=== PATIENT | female | born 1975 | race Caucasian/White ===

== ENCOUNTER → 2017-07-16 14:53 | Outpatient (CLI) | payer BC, SELFPAY ==
--- NOTE | 2017-07-16 15:01 | US_ITS ---
US transvaginal Ordering Physician: Yolanda Couch Patient Age: 42 years: Female HISTORY: ITS.REASON: DUB, RLQ PAIN TECHNIQUE: Transvaginal pelvic ultrasound none COMPARISON : None relevant CT pelvis and 2007 of no benefit FINDINGS ====== UTERUS.: 7.8 cm length x 4.8 cm x 4.75 cm with Retroverted retroflexed uterus There are at least 3 fibroids. FIBROID A: 3.8 x 2.8 x 2.5 cm near the fundus towards anatomic posterior wall this retroverted retroflexed uterus FIBROID B: 2.7 cm x 2.8 cm x 2 cm at the mid portion of the anatomic anterior wall of is retroverted uterus FIBROID C: 1.2 CM X 1.8 CM. X 1.6 CM central position, adjacent to the top endometrial stripe. Prominent 1.2 cm nabothian cyst at cervical canal ----- Ovaries appear normal in size with a few scattered tiny follicles bilaterally. RIGHT OVARY:: 1.9 cm x 1.45 cm x 1.5 cm. LEFT OVARY: measures 2.5 x 1.7 x 2.1 cm. Trace fluid at cul-de-sac. ==== IMPRESSION: ========= Fibroid Uterus: Overall Normal size but Retroflexed retroverted uterus There are least 3 FIBROIDS.:. The largest measured 3.8 cm within the myometrium of the fundus The next is see myometrium n midportion of uterus 2.8 cm The third is a 1.8 cm cm fibroid adjacent to the right top of the endometrial stripe Ovaries appear normal in size and appearance. Trace fluid at cul-de-sac.
== END ==
PROVIDERS: Family Provider Nurse Practitioner; PCP Nurse Practitioner; Visit Provider Nurse Practitioner
DX: N93.9 Abnormal uterine and vaginal bleeding, unspecified (principal); R10.31 Right lower quadrant pain
CPT/HCPCS: 76830

== ENCOUNTER → 2017-08-03 15:01 | Outpatient (CLI) | payer BC, SELFPAY ==
--- NOTE | 2017-08-03 15:08 | XR_ITS ---
EXAM: XR lumbar spine min 4V HISTORY: ITS.REASON: LUMBAGO WITH SCIATICA ORDERING PHYSICIAN: Eugenio Bolton MD PATIENT AGE: 42 years FINDINGS: Normal alignment. No fracture or dislocation. No lytic or blastic change. No significant degenerative change. The disc spaces are preserved. IMPRESSION: Negative lumbar spine
== END ==
PROVIDERS: PCP Family Medicine; Visit Provider Family Medicine
DX: M54.42 Lumbago with sciatica, left side (principal); M54.41 Lumbago with sciatica, right side
CPT/HCPCS: 72110

== ENCOUNTER → 2017-08-16 13:51 | Outpatient (CLI) | payer BC, SELFPAY ==
--- NOTE | 2017-08-16 13:54 | MR_ITS ---
MR lumbar spine wo con, MR 3-d myelogram/MRCP HISTORY: X3WKS ago heard a pop and has had RT hip pain since. No trauma. ORDERING PHYSICIAN: Alberta Bartlett PATIENT AGE: 42 years COMPARISON: X-RAY 08-03-17 TECHNIQUE: Standard multiplanar multiecho sequences are performed without contrast. 3-D MIP and myelographic images are also rendered and reviewed FINDINGS: There is normal alignment. Spinal cord ends at the T12-L1 level. L1-L2, L2-L3, and L3-L4 have an unremarkable appearance. The disc space at L4-5 is unremarkable. There is mild facet and ligamentum flavum hypertrophic change at that level. L5-S1: There is a small broad-based central/left paracentral disc protrusion/herniation. This is abutting the left S1 nerve root. IMPRESSION: 1. Small broad-based central/left paracentral disc protrusion/herniation at L5-S1 abutting the left S1 nerve root. 2. Otherwise essentially negative MRI of the lumbar spine
== END ==
PROVIDERS: Family Provider Nurse Practitioner; PCP Family Medicine; Visit Provider Nurse Practitioner Family
DX: M54.42 Lumbago with sciatica, left side (principal); M54.41 Lumbago with sciatica, right side
CPT/HCPCS: 72148; 76376

== ENCOUNTER → 2018-02-08 13:57 | Outpatient (CLI) | payer BC, SELFPAY ==
--- NOTE | 2018-02-08 14:05 | XR_ITS ---
XR ankle LT min 3V HISTORY: ITS.REASON: LT ANKLE SWELLING ORDERING PHYSICIAN: Alberta Bartlett PATIENT AGE: 42 years Comparison: None FINDINGS: No fracture or dislocation. No lytic or blastic change. There is normal mineralization.. The joint spaces are well-preserved. No significant degenerative/arthritic changes. No erosive changes evident. IMPRESSION: Negative ankle, no acute finding
== END ==
PROVIDERS: PCP Nurse Practitioner Family; Visit Provider Nurse Practitioner Family
DX: M25.572 Pain in left ankle and joints of left foot (principal)
CPT/HCPCS: 73610

== ENCOUNTER 2018-02-08 14:23 | Outpatient (RCR) | payer BC, SELFPAY | END 2018-02-11 16:00 | disposition home or self-care (01) | LOC: PT 14:23 | PROVIDERS: Visit Provider Nurse Practitioner Family | DX: S93.492A Sprain of other ligament of left ankle, initial encounter (principal) | CPT/HCPCS: 97760 ==

== ENCOUNTER → 2018-08-05 14:35 | Outpatient (CLI) | payer BC, SELFPAY ==
--- NOTE | 2018-08-05 14:39 | XR_ITS ---
XR wrist RT min 3V HISTORY right wrist pain, carpal tunnel ITS.REASON: AP, lateral, oblique ORDERING PHYSICIAN: Theresa Ignacio MD PATIENT AGE: 43 years FINDINGS: No fracture or dislocation. No lytic or blastic change. There is normal mineralization.. The joint spaces are well-preserved. No significant degenerative/arthritic changes. No erosive changes evident.. IMPRESSION: Negative wrist
--- NOTE | 2018-08-05 14:43 | XR_ITS ---
XR hip LT 2-3V w/pelvis HISTORY: ITS.REASON: LT HIP PAIN ORDERING PHYSICIAN: Theresa Ignacio MD PATIENT AGE: 43 years COMPARISON: None FINDINGS: No fracture or dislocation is evident. No significant degenerative change. No lytic or blastic change. Unremarkable soft tissues IMPRESSION: Negative hip
== END ==
PROVIDERS: PCP Nurse Practitioner Family; Visit Provider Orthopaedic Surgery
DX: G56.01 Carpal tunnel syndrome, right upper limb (principal); M25.552 Pain in left hip
CPT/HCPCS: 73110; 73502

== ENCOUNTER → 2018-09-19 15:33 | Outpatient (CLI) | payer BC, SELFPAY ==
[2018-09-19 16:00] LABS: Basophils % 0.6 % (0.1-2.0); Eosinophils # 0.3 K/mm3 (0.0-0.4); Eosinophils % 4.1 % (0.1-12.0); Hematocrit 39.7 % (37.0-47.0); Hemoglobin 13.5 g/dL (12.2-16.2); Lymphocytes # 2.6 K/mm3 (0.7-4.5); Lymphocytes % 41.5 % (10-50); Mean Corpuscular HGB Conc 33.9 g/dL (31.8-35.4); Mean Corpuscular Hemoglobin 30.7 pg (27.0-31.2); Mean Corpuscular Volume 90.3 fl (81-99); Mean Platelet Volume 7.7 fl (7.4-10.4); Monocytes # 0.4 K/mm3 (0.1-1.0); Monocytes % 5.8 % (1.7-9.3); Neutrophils # 3.1 K/mm3 (1.8-7.8); Neutrophils % 47.9 % (37.0-80.0); Platelet Count 259 K/mm3 (142-424); Red Cell Distribution Width 13.1 % (11.5-17.5); White Blood Count 6.4 K/mm3 (4.8-10.8)
[2018-09-19 19:32] LABS: Anion Gap 14.5 mEq/L (5-15); Blood Urea Nitrogen 15 mg/dL (7-18); Calcium 9.1 mg/dL (8.5-10.1); Carbon Dioxide 27 mmol/L (21.0-32.0); Chloride 103 mmol/L (98-107); Creatinine,Serum 0.73 mg/dL (0.55-1.02); Estimated Glomerular Filt Rate 87 ml/min (>60); GFR (African American) 105 ML/MIN (>60); Glucose 107 mg/dL (74-106); Potassium 4.5 mmoL/L (3.5-5.1); Sodium 140 mmol/L (136-145)
== END ==
PROVIDERS: Visit Provider Orthopaedic Surgery
DX: Z00.00 Encounter for general adult medical examination without abnormal findings (principal); G56.01 Carpal tunnel syndrome, right upper limb
CPT/HCPCS: 36415; 80048; 85025

== ENCOUNTER 2018-09-27 11:06 | Day surgery (SDC) | payer BC, SELFPAY ==
[2018-09-26 10:42] VITALS: BMI 34.6
[2018-09-27 11:27] VITALS: BP 141/77; PULSE 66; RESP 18; TEMP 36.1; O2SAT 100
--- NOTE | 2018-09-27 11:57 | HMH.ANESCL ---
[facility] Anesthesia Checklist - Patient Identification Patient Identification: Arm Band, Verbal (Name & ) - Structural Data Admitted From: Home Planned Operative Procedure/s: Right CTR Consent for Planned Operative Procedure(s) Verified: Yes Verified Documents: Surgical Consent, History and Physical - NPO Status Verified Time NPO: 21:00 - Additional verifications Patient : No Anesthesia Reactions: No - Airway Assessment C-Spine Mobility Assessed: Yes TMJ Mobility Assessed: Yes Dentition: Good Dentition - Neurological Assessment Level of Consciousness: Awake, Alert, Appropriate, Follows Commands Hx Seizures: No Numbness or tingling in extremities: No - Anesthesia Plan Anesthesia Risk discussed: Yes Anesthesia Plan: Verified ASA Class: II Anesthesia Type: None (Sandra block and MAC) [facility] History I have reviewed the patient's past medical history: Yes Medical History: Reports:: Depression, Gastroesophageal Reflux Disease(GERD) Denies:: Cancer, Diabetes Mellitus Type 1, Diabetes Mellitus Type 2, Internal Pacemaker, MRSA, Seizures *Have you ever received a pneumonia vaccine?: No *Have you received a flu vaccine this season?: Yes Other Medical History: Denies: Blood Transfusion Reaction Laterality Cases: Bilateral: Other (wisdom teeth) Other Surgeries: Yes: Cholecystectomy, Hysterectomy-Total, Other (ovarian cystectomy). No: Pacemaker Amputation: No Fractures: No - *Social History Educational Level: Attended College Smoking Status: Never smoker Alcohol Intake: never Substance Use Type: denies use *Occupational Status:: employed Housing: house Household Members: family *Travel in the last 8 weeks: None - Psychiatric History Expresses thoughts of harming self/others: None Suicide Plan Description: No Plan Pschychiatric History:: Reports:: Depression Family Hx:: Hypertension, Cancer, Diabetes
[2018-09-27 13:45] VITALS: BP 151/78; PULSE 62; RESP 18; TEMP 36.1; O2SAT 99
[2018-09-27 14:15] VITALS: BP 115/68; PULSE 65; RESP 18; O2SAT 100
--- NOTE | 2018-09-27 15:15 | HMH.OPNOTE ---
Date of procedure: 09/27/18 Pre-op Diagnosis:: R carpal tunnel syndrome Post-op Diagnosis:: R carpal tunnel syndrome Procedure performed:: R carpal tunnel release Surgeon:: Theresa Ignacio MD Pharmacy Tech(s):: Wen Dunne RESPIRATORY CARE TECHNICIAN:: Eugenio Rivas Anesthesia: MAC, local, other (Sandra block) Estimated blood loss (mL): 5 Clinical Note:: 43-year-old female with a chief complaint of right hand pain, numbness and tingling in the first 3 digits of the hand. She has been seen previously by Dr. Okeefe for similar symptoms and received a steroid injection followed by physical therapy, which did help for around 8 months. Bracing and NSAIDs were added but they did not make a tremendous difference. Her symptoms have been steadily worsening for the last few months and she has been dropping objects; the pain wakes her up at night. EMG-NCS RUE 09/08/2018 = [id number] median nerve compression at the wrist. The patient would like to proceed with surgical treatment, and I believe this is reasonable given that her symptoms have been present for 4 years and she has failed to improve with PT, bracing and a steroid injection. I discussed the risks of surgery, including bleeding, infection, impaired wound healing, failure of symptom resolution, recurrence of CTS, and need for further surgery in the future. The patient vocalized understanding and provided informed consent. Operative findings:: compression of median nerve at R wrist Operative note:: The patient was identified in preoperative holding and the R wrist signed by myself. She was then seen by anesthesia and the decision was made to perform a combination of MAC and Cheswick block. I reviewed the consent with the patient, answering all questions. She was then taken to the OR and placed supine on the operative table. Ancef 1g was infused intravenously and then the anesthesia provider administered a Cheswick block to the R upper extremity using lidocaine and a single tourniquet with 2 bladders. Once the Cheswick block was completed, the R arm was prepped and draped from the elbow distally in the usual sterile fashion using chlorhexidine prep. Timeout was performed, identifying the correct patient, correct procedure, and correct site. The procedure was begun by placing the patient's R hand/forearm in a supinated position. The planned surgical incision was drawn using anatomic landmarks specifically at the intersection of Rangel's cardinal line and the radial border of the ring finger, extending proximally to the wrist flexion crease. Because the Sandra block was up, further exsanguination was not needed. The procedure was begun by making an incision over the volar aspect of the wrist in a longitudinal fashion following our previously delineated line. After the skin was incised, a blunt-tipped tenotomy scissors was used to bluntly spread the subcutaneous tissue. Tissue was spread until the transverse carpal ligament was identified. No neurovascular structures were encountered thus far. The transverse carpal ligament was identified and its proximal margin palpated with a freer elevator. I was able to slip the tip of the freer under the proximal edge of the transverse carpal ligament and into the carpal tunnel. Using a fresh 15 blade, I lightly teased the fibers of the ligament and released it from proximally to distally using the freer to protect the underlying carpal tunnel contents. I continued to cut down onto the freer moving distally, until the entire transverse carpal ligament was released. Then, using the blunt tenotomy scissors, I push-cut around 5-10 mm of the distal forearm fascia and palpated the distal end of the transverse carpal ligament, confirming that the entire canal had been released. The median nerve was readily identified underlying the ligament and it was hyperemic; the transverse carpal ligament and the carpal tunnel contents were very tight and there was a high degree of compression on the nerve. I was able
--- NOTE | 2018-09-27 15:28 | P.OP_ITS ---
Date of procedure: 09/27/18 Pre-op Diagnosis:: R carpal tunnel syndrome Post-op Diagnosis:: R carpal tunnel syndrome Procedure performed:: R carpal tunnel release Surgeon:: Theresa Ignacio MD High School Music Director(s):: Wen Dunne COUNTER STITCHER:: Eugenio Rivas Anesthesia: MAC, local, other (Sandra block) Estimated blood loss (mL): 5 Clinical Note:: 43-year-old female with a chief complaint of right hand pain, numbness and tingling in the first 3 digits of the hand. She has been seen previously by Dr. Okeefe for similar symptoms and received a steroid injection followed by physical therapy, which did help for around 8 months. Bracing and NSAIDs were added but they did not make a tremendous difference. Her symptoms have been steadily worsening for the last few months and she has been dropping objects; the pain wakes her up at night. EMG-NCS RUE 09/08/2018 = [id number] median nerve compression at the wrist. The patient would like to proceed with surgical treatment, and I believe this is reasonable given that her symptoms have been present for 4 years and she has failed to improve with PT, bracing and a steroid injection. I discussed the risks of surgery, including bleeding, infection, impaired wound healing, failure of symptom resolution, recurrence of CTS, and need for further surgery in the future. The patient vocalized understanding and provided informed consent. Operative findings:: compression of median nerve at R wrist Operative note:: The patient was identified in preoperative holding and the R wrist signed by myself. She was then seen by anesthesia and the decision was made to perform a combination of MAC and [place] block. I reviewed the consent with the patient, answering all questions. She was then taken to the OR and placed supine on the operative table. Ancef 1g was infused intravenously and then the anesthesia provider administered a [place] block to the R upper extremity using lidocaine and a single tourniquet with 2 bladders. Once the [place] block was completed, the R arm was prepped and draped from the elbow distally in the usual sterile fashion using chlorhexidine prep. Timeout was performed, identifying the correct patient, correct procedure, and correct site. The procedure was begun by placing the patient's R hand/forearm in a supinated position. The planned surgical incision was drawn using anatomic landmarks specifically at the intersection of Rangel's cardinal line and the radial border of the ring finger, extending proximally to the wrist flexion crease. Because the Sandra block was up, further exsanguination was not needed. The procedure was begun by making an incision over the volar aspect of the wrist in a longitudinal fashion following our previously delineated line. After the skin was incised, a blunt-tipped tenotomy scissors was used to bluntly spread the subcutaneous tissue. Tissue was spread until the transverse carpal ligament was identified. No neurovascular structures were encountered thus far. The transverse carpal ligament was identified and its proximal margin palpated with a freer elevator. I was able to slip the tip of the freer under the proximal edge of the transverse carpal ligament and into the carpal tunnel. Using a fresh 15 blade, I lightly teased the fibers of the ligament and released it from proximally to distally using the freer to protect the underlying carpal tunnel contents. I continued to cut down onto the freer moving distally, until the entire transverse carpal ligament was released. Then, using the blunt tenotomy scissors, I push-cut around 5-10 mm of the distal forearm fascia and palpated the distal end of the transverse carpal ligament, confirming that the entire canal had been released. The median
== END 2018-09-27 14:15 | disposition home or self-care (01) ==
LOC: OR 11:10
PROVIDERS: PCP Nurse Practitioner Family; Visit Provider Orthopaedic Surgery
PROC: (CPT 64721; principal; 2018-09-27 12:30)
DX: G56.01 Carpal tunnel syndrome, right upper limb (principal)
CPT/HCPCS: 64721; 96374

== ENCOUNTER → 2019-08-07 09:32 | Outpatient (CLI) | payer BC, SELFPAY ==
[2019-08-07 10:53] LABS: Basophils # 0.1 K/mm3 (0-0.2); Eosinophils # 0.1 K/mm3 (0.0-0.4); Eosinophils % 1.6 % (0.1-12.0); Hematocrit 42.9 % (37.0-47.0); Hemoglobin 14.3 g/dL (12.2-16.2); Lymphocytes # 2.6 K/mm3 (0.7-4.5); Lymphocytes % 38.4 % (10-50); Mean Corpuscular HGB Conc 33.4 g/dL (31.8-35.4); Mean Corpuscular Hemoglobin 30.7 pg (27.0-31.2); Mean Corpuscular Volume 91.7 fl (81-99); Monocytes # 0.4 K/mm3 (0.1-1.0); Monocytes % 5.8 % (1.7-9.3); Neutrophils # 3.6 K/mm3 (1.8-7.8); Neutrophils % 53.2 % (37.0-80.0); Platelet Count 309 K/mm3 (142-424); Red Blood Count 4.68 M/mm3 (4.20-5.40); White Blood Count 6.7 K/mm3 (4.8-10.8)
[2019-08-07 11:55] LABS: Alanine Aminotransferase 18 U/L (12-78); Albumin Level 4.2 g/dl (3.5-5.0); Albumin/Globulin Ratio 1.4 (1.1-1.8); Alkaline Phosphatase 61 U/L (38-126); Anion Gap 9.8 mEq/L (5-15); Aspartate Amino Transferase 21 U/L (14-36); Bilirubin,Total 0.3 mg/dl (0.2-1.3); Blood Urea Nitrogen 13 mg/dl (7-17); Calcium 9.7 mg/dl (8.4-10.2); Carbon Dioxide 29 mmol/L (22.0-30.0); Chloride 101 mmol/L (98-107); Estimated Glomerular Filt Rate 90 ml/min (>60); GFR (African American) 109 ML/MIN (>60); Glucose 96 mg/dl (74-100); Potassium 3.8 mmoL/L (3.5-5.1); Sodium 136 mmol/L (136-145); Total Protein,Serum 7.2 g/dl (6.3-8.2)
[2019-08-07 12:28] LABS: Thyroid Stimulating Hormone 2.33 uIU/mL (0.465-4.68)
[2019-08-07 12:32] LABS: Ferritin 21.4 ng/ml (6.24-137)
[2019-08-08 12:44] LABS: Vitamin B12 547 pg/mL (232-1245); Vitamin D 25 Hydroxy 29.1 ng/mL (30.0-100.0)
== END ==
PROVIDERS: Visit Provider Nurse Practitioner Family
DX: R53.83 Other fatigue (principal); E55.9 Vitamin D deficiency, unspecified
CPT/HCPCS: 36415; 80053; 82607; 82652; 82728; 84443; 85025

== ENCOUNTER → 2019-10-26 16:05 | Outpatient (CLI) | payer BC, SELFPAY ==
[2019-10-26 16:11] LABS: Adenovirus F 40/41, stool Not Detected (NotDetected); Astrovirus Not Detected (NotDetected); Clostridium Difficile A/B, PCR Not Detected (NotDetected); Cryptosporidium Not Detected (NotDetected); Cyclospora Cayetanesis Not Detected (NotDetected); Entamoeba histolytica Not Detected (NotDetected); Enteroaggregative E coli Not Detected (NotDetected); Enteropathogenic E coli Not Detected (NotDetected); Enterotoxigenic E coli Not Detected (NotDetected); Giardia lamblia Not Detected (NotDetected); Norovirus Not Detected (NotDetected); Plesimonas Shigalloides, PCR Not Detected (NotDetected); Rotavirus A Not Detected (NotDetected); Salmonella, PCR Not Detected (NotDetected); Sapovirus Not Detected (NotDetected); Shiga-like toxin E coli Not Detected (NotDetected); Shigella Enterovasive E coli Not Detected (NotDetected); Vibrio Cholerae Not Detected (NotDetected); Vibrio, PCR Not Detected (NotDetected); Yersinia Entercolitica, PCR Not Detected (NotDetected)
[2019-10-26 18:12] LABS: Campylobacter Detected (NotDetected)
[2019-10-28 12:57] LABS: Covid-19 Nasal PCR Sendout Lex Not Detected
== END ==
PROVIDERS: Visit Provider Nurse Practitioner Family
DX: Z03.818 Encounter for observation for suspected exposure to other biological agents ruled out (principal); R19.7 Diarrhea, unspecified; A04.5 Campylobacter enteritis
CPT/HCPCS: 87507; U0004

== ENCOUNTER → 2019-11-14 11:13 | Outpatient (POV) | payer BC, SELFPAY | PROVIDERS: PCP Family Medicine; Visit Provider Dermatology | DX: Z00.00 Encounter for general adult medical examination without abnormal findings (principal) ==

== ENCOUNTER → 2019-11-28 13:19 | Outpatient (POV) | payer BC, SELFPAY | PROVIDERS: Visit Provider Dermatology | DX: Z00.00 Encounter for general adult medical examination without abnormal findings (principal) ==

== ENCOUNTER → 2019-12-12 10:18 | Outpatient (POV) | payer BC, SELFPAY | PROVIDERS: Visit Provider Dermatology | DX: Z00.00 Encounter for general adult medical examination without abnormal findings (principal) ==

== ENCOUNTER → 2019-12-19 15:26 | Outpatient (POV) | payer BC, SELFPAY | PROVIDERS: Visit Provider Dermatology | DX: L08.9 Local infection of the skin and subcutaneous tissue, unspecified (principal) | CPT/HCPCS: 87070; 87077; 87186; 87205 ==

== ENCOUNTER → 2020-02-06 14:58 | Outpatient (CLI) | payer BC, SELFPAY ==
--- NOTE | 2020-02-06 15:02 | MR_ITS ---
PROCEDURE: MR HEAD/BRAIN WO CON CLINICAL INDICATION: DIZZINESS, HEADACHE, FACIAL NUMBNESS HEADACHE X6WKS.DIZZINESS, BLURRED VISION CONDTANT X2WKS. NO INJURY. INTERMITTENT NUMBNESS AND TINGLING AROUND LIPS AND ROOF OF MOUTH. NO PRIOR. COMPARISON: No exams were available for comparison TECHNIQUE: Routine multiplanar multi echo sequences are performed without gadolinium enhancement. FINDINGS: No midline shift, mass effect, intracranial hemorrhage, or hydrocephalus. No evidence of acute infarction. The cerebellopontine angles, cerebellum and brainstem have an unremarkable appearance. The pituitary, optic chiasm, corpus callosum, and craniocervical junction have an unremarkable appearance. No mastoid effusion or sinus air-fluid level. IMPRESSION: Negative MRI of the brain without contrast Dictated by: Farhan Palumbo MD 02/07/2020 11:41 Farhan Palumbo MD in [place] 02/07/2020 11:41
== END ==
PROVIDERS: PCP Family Medicine; Visit Provider Nurse Practitioner Family
DX: R42 Dizziness and giddiness (principal); R51.9 Headache, unspecified; R20.0 Anesthesia of skin; R41.3 Other amnesia
CPT/HCPCS: 70551

== ENCOUNTER → 2020-02-13 13:57 | Outpatient (POV) | payer BC, SELFPAY | PROVIDERS: Visit Provider Dermatology | DX: Z00.00 Encounter for general adult medical examination without abnormal findings (principal) ==

== ENCOUNTER → 2020-02-24 11:58 | Outpatient (CLI) | payer BC, SELFPAY ==
[2020-02-24 12:31] LABS: Basophils % 0.5 % (0.1-2.0); Eosinophils # 0.1 K/mm3 (0.0-0.4); Eosinophils % 1.7 % (0.1-12.0); Hematocrit 46.1 % (37.0-47.0); Hemoglobin 15.8 g/dL (12.2-16.2); Lymphocytes % 39.7 % (10-50); Mean Corpuscular HGB Conc 34.3 g/dL (31.8-35.4); Mean Corpuscular Hemoglobin 31.4 pg (27.0-31.2); Mean Corpuscular Volume 91.6 fl (81-99); Mean Platelet Volume 7.9 fl (7.4-10.4); Monocytes # 0.5 K/mm3 (0.1-1.0); Monocytes % 6.1 % (1.7-9.3); Neutrophils # 3.9 K/mm3 (1.8-7.8); Platelet Count 314 K/mm3 (142-424); Red Blood Count 5.03 M/mm3 (4.20-5.40); Red Cell Distribution Width 13.5 % (11.5-17.5); White Blood Count 7.5 K/mm3 (4.8-10.8)
[2020-02-24 13:32] LABS: Chloride 96 mmol/L (98-107); Potassium 3.5 mmoL/L (3.5-5.1); Sodium 138 mmol/L (136-145)
[2020-02-24 13:35] LABS: Anion Gap 13.5 mEq/L (5-15); Blood Urea Nitrogen 18 mg/dl (7-17); Carbon Dioxide 32 mmol/L (22.0-30.0); Estimated Glomerular Filt Rate 78 ml/min (>60); GFR (African American) 94 ML/MIN (>60); Glucose 78 mg/dl (74-100)
[2020-02-24 15:59] LABS: Coronavirus 19 IgG Antibody Negative (Negative); Coronavirus 19 IgM Antibody Negative (Negative)
== END ==
PROVIDERS: Visit Provider Internal Medicine
DX: Z01.810 Encounter for preprocedural cardiovascular examination (principal); Z13.6 Encounter for screening for cardiovascular disorders
CPT/HCPCS: 36415; 80048; 85025; 86328

== ENCOUNTER 2020-02-26 08:36 | Day surgery (SDC) | payer BC, SELFPAY ==
[2020-02-26] VITALS (13 sets, daily range): BP systolic 102–136; BP diastolic 59–84; PULSE 62–82; RESP 12–20; TEMP 36.5; O2SAT 90–100; BMI 36.7
--- NOTE | 2020-02-26 | IR_ITS ---
APPROVED REPORT Patient Location: Outpatient PROCEDURES Left heart catheterization Left ventriculogram Selective coronary angiogram INDICATION Recalcitrant angina pectoris combined with risk factors with borderline significant/abnormal stress test based on exercise-induced chest pain per report Informed consent was obtained prior to the procedure. COMPLICATIONS None Estimated Blood Loss: Less thna 10 ml TECHNIQUE One percent lidocaine used to anesthetize the right anterior aspect of the wrist. The right radial artery was accessed via the Seldinger technique. A 6 Occitan sheath was placed in the right radial artery. 2.5 mg of verapamil, 800 mcg of nitroglycerin, 1mg Lidocaine and 5000 U Heparin were given through the arterial sheath. The trap catheter was also used to perform left heart catheterization, left ventriculogram and selective coronary angiogram. At the end of the procedure the sheath was removed good hemostasis was achieved using Traclet band, patient was transferred to the postop holding area in stable condition. ANGIOGRAPHIC RESULTS The left main artery Normal The left anterior descending artery Normal The circumflex artery Normal The right coronary artery Dominant normal The MOENT ventriculogram reveals Normal 65% The left ventricular end-diastolic pressure 15 mmHg IMPRESSION Normal coronary arteries Normal ejection fraction Borderline elevated LVEDP PLAN 1. Medical management 2. Valuation of noncardiac chest pain Electronically signed by : Henri Lewis, 02/26/2020 10:21:40
== END 2020-02-26 13:24 ==
LOC: CATHLAB 08:43
PROVIDERS: PCP Family Medicine; Visit Provider Internal Medicine
DX: I25.118 Atherosclerotic heart disease of native coronary artery with other forms of angina pectoris (principal); R07.9 Chest pain, unspecified; R94.39 Abnormal result of other cardiovascular function study; I10 Essential (primary) hypertension; Z82.49 Family history of ischemic heart disease and other diseases of the circulatory system; R42 Dizziness and giddiness
CPT/HCPCS: 93458; 99152; 99153; C1725; C1769; J1644; Q9967

== ENCOUNTER → 2020-02-27 14:20 | Outpatient (CLI) | payer BC, SELFPAY ==
--- NOTE | 2020-02-27 14:24 | XR_ITS ---
PROCEDURE: XR CHEST 2V CLINICAL HISTORY: CHEST TIGHTNESS AND PRESSURE COMPARISON: No exams were available for comparison FINDINGS: The cardiomediastinal silhouette and pulmonary vascularity are within normal limits. The lungs are clear without infiltrates, suspicious nodules, or pleural effusions. No acute bony abnormalities. IMPRESSION: No acute findings. Dictated by: Farhan Palumbo MD 02/27/2020 15:11 Farhan Palumbo MD in [place] 02/27/2020 15:11
== END ==
PROVIDERS: PCP Family Medicine; Visit Provider Family Medicine
DX: R07.89 Other chest pain (principal)
CPT/HCPCS: 71046

== ENCOUNTER → 2020-03-06 10:05 | Outpatient (CLI) | payer BC, SELFPAY ==
[2020-03-06 11:09] LABS: Chloride 96 mmol/L (98-107); Potassium 3.6 mmoL/L (3.5-5.1); Sodium 137 mmol/L (136-145)
[2020-03-06 11:12] LABS: Anion Gap 9.6 mEq/L (5-15); Blood Urea Nitrogen 15 mg/dl (7-17); Carbon Dioxide 35 mmol/L (22.0-30.0); Estimated Glomerular Filt Rate 78 ml/min (>60); GFR (African American) 94 ML/MIN (>60)
[2020-03-06 11:13] LABS: Calcium 9.8 mg/dl (8.4-10.2); Glucose 97 mg/dl (74-100)
== END ==
PROVIDERS: Visit Provider Urology
DX: I10 Essential (primary) hypertension (principal); R42 Dizziness and giddiness
CPT/HCPCS: 36415; 80048

== ENCOUNTER 2020-08-23 13:19 | Emergency (ER) | payer BC, SELFPAY ==
[2020-08-23 13:25] VITALS: BP 125/62; PULSE 69; RESP 19; TEMP 36.6; O2SAT 98; BMI 35.6
--- NOTE | 2020-08-23 13:51 | HMH.EDUTC ---
[facility] [place] Impression: Poison cuauhtemoc dermatitis Disposition: Home, Self-Care Condition on Discharge: Good Instructions: DI for Poison Cuauhtemoc Allergy Prescriptions: EPINEPHrine [Epipen 2-Olegario] 0.3 mg IJ ONCE #2 auto.injct Transmission Status: Pending to [facility] Triamcinolone Acetonide 15 gm TP BID 7 Days #1 tube Transmission Status: Pending to [facility] Referrals: Alberta Bartlett APRN [Primary Care Provider] - Time of Disposition: 13:57 Medical Decision Making - Kale Inquiry Pt receiving controlled substance: No Vital Signs: 08/23/20 13:25 Temperature 97.9 F Temperature Source Temporal Artery Scan Pulse Rate [Left Brachial] 69 Respiratory Rate 19 Blood Pressure [Left Arm] 125/62 Blood Pressure Mean [Left Arm] 83 Blood Pressure Source [Left Arm] Automatic Cuff Blood Pressure Position [Left Arm] Sitting 02 Sat by Pulse Oximetry 98 Oxygen Delivery Method Room Air [facility] [place] - General Chief complaint: Urgent [facility] Center Stated complaint: possible poison cuauhtemoc Time Seen by Provider: 08/23/20 13:51 Mode of Arrival: Ambulatory Source of Information: Patient Limitations: No Limitations Description of Symptoms (Recalled from Triage Doc. by RN): PATIENT C/O POISON CUAUHTEMOC TO BILATERAL ARMS X 2 DAYS HEENT Symptoms (Recalled from RN notes): No Resp Symptoms (Recalled from RN notes): No Skin Symptoms (Recalled from RN notes): Yes MS Symptoms (Recalled from RN notes): No Functional Status (Recalled from RN notes): WNL - History of Present Illness Provider Complaint: 45 yr old female presents for posion cuauhtemoc to [facility]. - Related Data Home Medications Medication Instructions Recorded Confirmed citalopram 20 mg tablet 20 mg PO DAILY 11/17/17 03/06/20 cetirizine 10 mg capsule 10 mg PO DAILY 08/08/18 03/06/20 Omeprazole [Omeprazole 20mg 20 mg PO DAILY 09/26/18 03/06/20 Capsule] vilazodone 10 mg tablet 10 mg PO DAILY tab 02/19/20 03/06/20 Previous Rx's Medication Instructions Recorded hydrochlorothiazide 25 mg tablet 25 mg PO DAILY #90 tab 03/06/20 losartan 50 mg tablet 50 mg PO DAILY #90 tab 03/06/20 metoprolol succinate 25 mg 25 mg PO DAILY #90 tab 03/06/20 tablet,extended release 24 hr EPINEPHrine [Epipen 2-Olegario] 0.3 mg IJ ONCE #2 auto.injct 08/23/20 Triamcinolone Acetonide 15 gm TP BID 7 Days #1 tube 08/23/20 Allergies Allergy/AdvReac Type Severity Reaction Status Date / Time Sulfa (Sulfonamide Allergy Mild UNKNOWN Verified 03/06/20 09:41 Antibiotics) - Worker's Comp Is this a Worker's Comp case?: No H History - Hepatitis A Screen Drug use history?: No High risk sexual behaviors?: No History of sexually transmitted infection?: No Currently employed?: No Childcare worker?: No Do you have indoor plumbing?: Yes Do you have electricity?: Yes Attestation statement:: This patient has been screened for Hepatitis A risk factors. I have reviewed the patient's past medical history: Yes Medical History: Reports:: Depression, Gastroesophageal Reflux Disease(GERD), Hyperlipidemia, Hypertension Denies:: Cancer, Diabetes Mellitus Type 1, Diabetes Mellitus Type 2, Internal Pacemaker, MRSA, Seizures Other Medical History: Denies: Blood Transfusion Reaction Laterality Cases: Right: Carpal Tunnel Release, Bilateral: Other Other Surgeries: Yes: No Previous Surgery, Cardiac Catheterization, Cholecystectomy, Hysterectomy-Total, Other (ovarian cystectomy). No: Pacemaker Amputation: No Fractures: No - Social History Smoking Status: Never smoker Alcohol Intake: never Alcohol Intake Frequency:: holidays/special occasions only Substance Use Type: denies use Occupational Status: other Housing: house Household Members: family - Psychiatric History Pschychiatric History:: Reports:: Depression Family Hx:: Hypertension, Cancer, Diabetes ROS Obtained: Yes Systems reviewed as appropriate & no additional complaints - Constitutional Constitutional: Re
[2020-08-23 14:08] VITALS: BP 125/62; PULSE 69; RESP 19; TEMP 36.6; O2SAT 98
== END 2020-08-23 14:12 | disposition home or self-care (01) ==
PROVIDERS: Emergency Provider Nurse Practitioner Family; PCP Nurse Practitioner Family
DX: L23.7 Allergic contact dermatitis due to plants, except food (principal); K21.9 Gastro-esophageal reflux disease without esophagitis; E78.5 Hyperlipidemia, unspecified; I10 Essential (primary) hypertension; Z79.899 Other long term (current) drug therapy; Z88.2 Allergy status to sulfonamides
CPT/HCPCS: 96372; 99202; G0463

== ENCOUNTER → 2020-11-26 13:48 | Outpatient (POV) | payer BC, SELFPAY | PROVIDERS: Visit Provider Dermatology | DX: Z00.00 Encounter for general adult medical examination without abnormal findings (principal) ==

== ENCOUNTER → 2020-12-24 13:51 | Outpatient (POV) | payer BC, SELFPAY | PROVIDERS: Visit Provider Dermatology | DX: Z00.00 Encounter for general adult medical examination without abnormal findings (principal) ==

== ENCOUNTER → 2021-01-02 14:27 | Outpatient (CLI) | payer BC, SELFPAY ==
--- NOTE | 2021-01-02 14:32 | XR_ITS ---
PROCEDURE: XR ANKLE RT MIN 3V CLINICAL INDICATION: RT ANKLE PAIN The COMPARISON: CR FTR3 FOOT-RT-3 VIEWS from 12/02/2012 CR ANKCMLT XR ankle LT min 3V from 02/08/2018 FINDINGS: No fracture or dislocation. No lytic or blastic change. There is normal mineralization. There are hypertrophic changes along the tip of the medial malleolus. This may be due to an old fracture or ununited ossification center. No soft tissue swelling. No acute fracture apparent. Small bony spurs present at the plantar surface of the calcaneus IMPRESSION: No acute findings. Dictated by: Farhan Palumbo MD 01/02/2021 15:32 Farhan Palumbo MD in [place] 01/02/2021 15:32
== END ==
PROVIDERS: PCP Nurse Practitioner Family; Visit Provider Nurse Practitioner Family
DX: M25.571 Pain in right ankle and joints of right foot (principal)
CPT/HCPCS: 73610

== ENCOUNTER → 2021-01-27 08:46 | Outpatient (CLI) | payer BC, SELFPAY ==
--- NOTE | 2021-01-27 08:50 | US_ITS ---
PROCEDURE: US ABDOMEN COMPLETE CLINICAL INDICATION: ABD WALL LUMP COMPARISON: No exams were available for comparison FINDINGS: PANCREAS: Unremarkable. No obvious mass or abnormal fluid collection. No ductal dilatation LIVER: No focal liver lesions demonstrated. Homogeneous echogenicity. No intrahepatic biliary ductal dilatation evident. There is appropriate direction of blood flow within a non dilated portal vein RIGHT KIDNEY: Unremarkable. Normal size and echogenicity. No hydronephrosis LEFT KIDNEY: Unremarkable. Normal size and echogenicity. No hydronephrosis GALLBLADDER: Prior cholecystectomy. Common bile duct is normal at 4 mm. AORTA: No evidence of aneurysmal dilatation. SPLEEN: Borderline splenomegaly at 13 cm. ASCITES: Patient reports a palpable lump in the anterior aspect of the abdomen. Ultrasound performed of this region only demonstrating subcutaneous fat. No cystic or solid mass evident. IMPRESSION: Prior cholecystectomy. Borderline splenomegaly. No sonographic abnormality demonstrated in the palpable area of concern Dictated by: Farhan Palumbo MD 01/27/2021 12:10 Farhan Palumbo MD in [place] 01/27/2021 12:10
== END ==
PROVIDERS: PCP Nurse Practitioner Family; Visit Provider Nurse Practitioner Family
DX: R22.2 Localized swelling, mass and lump, trunk (principal)
CPT/HCPCS: 76700

== ENCOUNTER → 2021-02-17 08:39 | Outpatient (CLI) | payer BC, SELFPAY ==
--- NOTE | 2021-02-17 08:40 | MR_ITS ---
PROCEDURE INFORMATION: Exam: MR Right Lower Extremity Joint Without and With Contrast; Ankle Exam date and time: 02/17/2021 8:40 AM Age: 45 years old Clinical indication: Pain and injury or trauma; Fall; Sprain or strain; Right; Patient HX: PT C/O RT heel and ankle pain after rolling RT ankle 3 weeks ago. ; Additional info: Right ankle pain TECHNIQUE: Imaging protocol: MR of the Right lower extremity without and with contrast. Exam focused on the ankle. Contrast material: PROHANCE; Contrast volume: 20 ml; Contrast route: IV; COMPARISON: CR XR ANKLE RT MIN 3V 01/02/2021 2:34 PM FINDINGS: Bones and cartilage: Chronic appearing ovoid ossicle of 8 x 5 mm at the anterior tip of the medial malleolus, suggesting old avulsion injury or chronic deltoid calcification; sagittal series 10, image 36. No marrow edema within or surrounding this ossicle to suggest an acute avulsion injury. Articular chondromalacia at the anterior tibiotalar joint, with cartilage thinning, fraying or erosion and edema, sagittal series 10, images 28-32, Degenerative osteoarthrosis of the talonavicular joint with ovoid anterior navicular osteophyte sagittal series 10, image 26. Articular cartilage edema at the anterior talonavicular joint. Tiny type 1 accessory navicular ossicle of 3 mm suggested on series 5. No acute fracture or dislocation. Joint spaces: A small effusion of the posterior subtalar joint pooling posteriorly series 10, image 24, and trace ankle joint effusion. LIGAMENTS: Distal tibiofibular syndesmosis: Unremarkable. No tear. Anterior talofibular ligament: Torn anterior talofibular ligament, ill-defined and replaced by intermediate intensity on nonenhanced T1 series 5, and soft tissue edema signal on coronal series 9, image 41. Posterior talofibular ligament: Mild surrounding soft tissue edema. No tear. Calcaneofibular ligament: Slight interstitial edema. No surface tear. Deltoid ligament complex: Abnormal deltoid ligament; on T1 series, there is loss of the normal fatty striated deltoid signal, replaced by intermediate intensity and with some mild interstitial edema seen on STIR series 9, likely [id number] sprain. No definite surface tear. TENDONS: Flexor tendons of foot: No tear as visualized. Trace fluid in the flexor hallucis longus tendon sheath at the ankle, which may be due to the ankle effusion. Tibialis posterior tendon: Small amount fluid in the tendon sheath at the posterior ankle but also in the midfoot, suggesting slight tenosynovitis. No tendon tear. Peroneal tendons: Unremarkable as visualized. Extensor tendons of foot: Unremarkable as visualized. Tibialis anterior tendon: Unremarkable as visualized. Achilles tendon: Unremarkable as visualized. Tarsal canal (Sinus tarsi): Unremarkable. Normal signal of the fat. Tarsal tunnel: Unremarkable. Muscles: Unremarkable. Soft tissues: There are some technical artifacts from clothing constricting the soft tissues surrounding the ankle, e.g. see sagittal series 10, image 32. Some mild edema fluid at the anterolateral ankle. Plantar fascia: Mildly thickened posterior plantar fascia. Minimal soft tissue edema abutting the plantar spur. No tear. IMPRESSION: 1. No acute fracture or dislocation. 2. Lateral ligament sprain injury; torn anterior talofibular ligament, interstitial edema in the calcaneal fibular ligament, deep soft tissue edema at the lateral ankle. 3. Suspect [id number]-[id number] sprain of the deltoid ligament; likely old medial malleolar avulsion injury or chronic deltoid ligament calcification, some interstitial scarring in the ligament, and superimposed interstitial edema. N
== END ==
PROVIDERS: PCP Nurse Practitioner Family; Visit Provider Podiatrist
DX: M25.371 Other instability, right ankle (principal); M25.571 Pain in right ankle and joints of right foot; M76.61 Achilles tendinitis, right leg; M84.374A Stress fracture, right foot, initial encounter for fracture
CPT/HCPCS: 73723; A9576

== ENCOUNTER → 2021-03-10 15:08 | Outpatient (CLI) | payer BC, SELFPAY ==
--- NOTE | 2021-03-10 15:12 | XR_ITS ---
PROCEDURE: XR CHEST 2V CLINICAL HISTORY: HX OF HIGH BLOOD PRESSURE COMPARISON: CR CXR1 CHEST-PORTABLE from 08/31/2012 CR XR CHEST 2V from 02/27/2020 FINDINGS: The cardiomediastinal silhouette and pulmonary vascularity are within normal limits. The lungs are clear without infiltrates, suspicious nodules, or pleural effusions. No acute bony abnormalities. IMPRESSION: No acute findings. Dictated by: Farhan Palumbo MD 03/10/2021 15:38 Farhan Palumbo MD in [place] 03/10/2021 15:38
== END ==
PROVIDERS: PCP Nurse Practitioner Family; Visit Provider Podiatrist
DX: Z01.818 Encounter for other preprocedural examination (principal); M25.371 Other instability, right ankle
CPT/HCPCS: 71046

== ENCOUNTER 2021-03-12 13:44 | Outpatient (RCR) | payer BC, SELFPAY | END 2021-03-12 13:50 | disposition home or self-care (01) | LOC: PT 13:44 | PROVIDERS: PCP Nurse Practitioner Family; Visit Provider Podiatrist | DX: M72.2 Plantar fascial fibromatosis (principal); M67.371 Transient synovitis, right ankle and foot | CPT/HCPCS: 97163 ==

== ENCOUNTER → 2021-03-24 14:59 | Outpatient (CLI) | payer BC, SELFPAY | PROVIDERS: Visit Provider Podiatrist | DX: Z01.812 Encounter for preprocedural laboratory examination (principal); Z11.52 Encounter for screening for COVID-19; M25.572 Pain in left ankle and joints of left foot | CPT/HCPCS: C9803; U0003; U0005 ==

== ENCOUNTER 2021-03-26 12:05 | Day surgery (SDC) | payer BC, SELFPAY ==
[2021-03-21 11:51] VITALS: BMI 36.2
[2021-03-26] VITALS (10 sets, daily range): BP systolic 118–137; BP diastolic 55–77; PULSE 72–98; RESP 12–20; TEMP 36.4–36.7; O2SAT 72–100
--- NOTE | 2021-03-26 13:00 | HMH.ANESCL ---
[facility] Anesthesia Checklist - Patient Identification Patient Identification: Arm Band - Structural Data Admitted From: Home Planned Operative Procedure/s: R. ankle synovectomy, stabilization Consent for Planned Operative Procedure(s) Verified: Yes - NPO Status Verified Time NPO: 00:00 - Additional verifications Anesthesia Reactions: No Hx Blood Transfusions: No Blood Transfusion Reaction: No - Airway Assessment C-Spine Mobility Assessed: Yes TMJ Mobility Assessed: Yes Dentition: Good Dentition - Neurological Assessment Level of Consciousness: Awake Hx Seizures: No Numbness or tingling in extremities: No - Anesthesia Plan Anesthesia Risk discussed: Yes Anesthesia Plan: Verified ASA Class: II Anesthesia Type: General w/block [facility] History I have reviewed the patient's past medical history: Yes Medical History: Reports:: Depression, Gastroesophageal Reflux Disease(GERD), Hyperlipidemia, Hypertension Denies:: Cancer, Diabetes Mellitus Type 1, Diabetes Mellitus Type 2, Internal Pacemaker, MRSA, Seizures *Have you ever received a pneumonia vaccine?: No *Have you received a flu vaccine this season?: Yes Other Medical History: Denies: Blood Transfusion Reaction Anesthesia experience/problems:: None Laterality Cases: Right: Carpal Tunnel Release, Bilateral: Other Other Surgeries: Yes: No Previous Surgery, Cardiac Catheterization, Cholecystectomy, Hysterectomy-Total, Hysterectomy-Partial, Other (ovarian cystectomy). No: Pacemaker Amputation: No Fractures: No - *Social History Last grade of school completed: Some college Smoking Status: Never smoker Alcohol Intake: never Alcohol Intake Frequency:: holidays/special occasions only Substance Use Type: denies use *Occupational Status:: employed Housing: house Household Members: family *Travel in the last 8 weeks: None - Psychiatric History Pschychiatric History:: Reports:: Depression Family Hx:: Hypertension, Cancer, Diabetes
--- NOTE | 2021-03-26 14:58 | HMH.OPNOTE ---
Date of procedure: 03/26/21 Pre-op Diagnosis:: 1. Right chronic ankle instability 2. Right plantar fasciitis 3. Tenosynovitis of right ankle 4. Transient synovitis, right ankle and foot 5. Gastrocnemius equinus of right lower extremity 6. Tear of deltoid ligament of right ankle, subsequent encounter 7. Obesity, Class II, BMI 35-39.9 Post-op Diagnosis:: Same Procedure performed:: 1. Right modified Brostrum lateral ankle stabilization 2. Right deltoid ligament repair 3. Right plantar fasciotomy 4. Right ankle synovectomy 5. Right ankle arthrotomy 6. Right gastroc recession 7. Right ankle (peroneal and posterior tibial) tenosynovectomy 8. Application of graft 9. Application of posterior splint Surgeon:: Estefany Lora DPM FIXTURE REPAIRER FABRICATOR:: Fidencio Yan Anesthesia: GETA, regional (right popliteal nerve block) Estimated blood loss (mL): 20 Clinical Note:: Patient is a 45-year-old female with a history of chronic ankle instability lasting over 2-3 years. She had a recent twisting injury 12/31/2020 which exacerbated all symptoms leading to right ankle weakness, worsening pain. History of bilateral plantar fasciitis. Failed conservative care including ice, elevation, modification of shoe gear, modification of activity, NSAIDs, stretching. Has been under the care of PCP Nik Bartlett. Unable to tolerate physical therapy due to worsening pain. Discussed PT for ultrasound and gait training prior to surgery. The patient has tried immobilization, modification of shoe gear, strapping, inserts, ice, elevation, and work restriction. She has also tried ankle bracing and home physical therapy. After a long discussion with the patient in regards to the conservative versus surgical treatment for the ankle instability, ligament tear/deformity, the patient has elected to proceed with surgery because they have failed conservative treatment and continue to have pain and worsening symptoms affecting daily activities. Discussed risks for DVT/PE. The patient has been instructed on the planned procedure, all risk versus benefits of the procedure discussed. These include but are not limited to: bleeding, infection, nerve and blood vessel damage, need for further surgery, delay in healing of soft tissue or bone, ligament/tendon re-rupture, failure of bones to heal, non-union, mal-union, failure of the implant, prolonged pain and recovery, CRPS/RSD, DVT and anesthetic complications. No guarantees given. All questions answered. The patient verbalized understanding and agreed to proceed with surgery. Written consent was obtained. Necessary labs and pre-op testing ordered: CBC, CMP, EKG, CXR, covid. Will need medical clearance. Patient will need crutches. Recommend RKS. Will need Rx for Satsuma 7.5mg, Zofran 4m, Motrin 800mg. Plan for aspirin 81 mg postoperatively for DVT ppx. Operative findings:: Gastroc equinus noted. Tight plantar fascia. There was some fibrosis of the plantar fascia inferiorly. Small bone spur appreciated on x-ray. The deltoid ligament was intact with attenuation and a small tear noted. The ATFL was attenuated and torn. Synovitis noted throughout the ankle joint. Tenosynovitis noted around the posterior tibial tendon medially and the peroneal tendons just inferior to the distal fibula laterally. No loose fracture fragments in the ankle joint. No signs of acute fracture or infection. Operative note:: On this date and time patient was deemed an appropriate surgical candidate. Pre-op regional popliteal nerve block performed by anesthesia. With informed consent signed, the patient was taken to operating theater. Patient positioned supine. General anesthesia induced. Tourniquet was applied to the right mid calf @225mmHg. Ancef 2g given. The right lower extremity was prepped and draped in normal sterile fashion. Right gastrocnemius recession: Attention was directed to the posterior leg where a longitudinal incision was made. Dissection down to the level of the peritenon which was transected mitch
--- NOTE | 2021-03-26 16:54 | XR_ITS ---
PROCEDURE: XR ANKLE RT 2V CLINICAL INDICATION: ANKLE STABILIZATION COMPARISON: CR ANKCMLT XR ankle LT min 3V from 02/08/2018 CR XR ANKLE RT MIN 3V from 01/02/2021 CR XR ANKLE RT MIN 3V from 03/26/2021 FINDINGS: Fluoroscopy time: 0.14 minutes. Single AP view of the right ankle was obtained. Normal alignment in the AP plane. IMPRESSION: C-arm assistance for ankle stabilization Dictated by: Farhan Palumbo MD 03/27/2021 12:57 Farhan Palumbo MD in [place] 03/27/2021 12:57
--- NOTE | 2021-03-26 17:00 | XR_ITS ---
PROCEDURE INFORMATION: Exam: XR Right Ankle Exam date and time: 03/26/2021 5:00 PM Age: 45 years old Clinical indication: Screening exam; Prior surgery; Surgery date: Post-operative (0-2 days); Surgery type: Right ankle stabilization; Additional info: Right ankle stab TECHNIQUE: Imaging protocol: XR Right ankle. Views: 3 or more views. Total images: 3 COMPARISON: SD XR ANKLE RT 2V 03/26/2021 4:45 PM FINDINGS: Tubes, catheters and devices: Plaster splint obscures detail. Bones/joints: No fractures. No blastic or lytic lesions. No gross ankle joint effusion. Soft tissues: Mild soft tissue swelling. Other findings: Normal alignment. IMPRESSION: 1. Anatomic alignment. No acute osseous abnormalities. 2. Mild soft tissue swelling which may be traumatic or postoperative.
--- NOTE | 2021-03-26 17:40 | P.PN_ITS ---
[facility] Anesthesia Record Part I Intake, IV Amount: 1,500 Estimated blood loss (mL): 0 Urine output (mL): 0 Blood Pressure: 122/55 SaO2: 95 Pulse Rate: 95 Respiratory Rate: 12 Temperature: 97.5 F Patient is:: Awake, Stable Stable to PACU at:: 17:35
[2021-03-31 12:46] VITALS: BP 137/74; PULSE 93; TEMP 36.4
--- NOTE | 2021-03-31 12:46 | P.PN_ITS ---
[facility] Anesthesia Record Part II Discharge Time: 18:05 Destination: Surgical Day Care (OP Surgery) PACU nurse assessment reviewed?: Yes Patient Condition:: Good Anesthesia Complications:: None Swallowing reflex intact?: Yes Cyanosis?: No Blood Pressure: 137/74 Pulse Rate: 93 Temperature: 97.5 F Mental Status: Alert & Oriented Pain level:: 0 Nausea and/or vomitting:: None Intake, IV Amount: 0
== END 2021-03-26 18:44 | disposition home or self-care (01) ==
LOC: OR 12:06
PROVIDERS: PCP Nurse Practitioner Family; Visit Provider Podiatrist
PROC: (CPT 15275; principal; 2021-03-26 13:00)
DX: M25.371 Other instability, right ankle (principal); S93.491A Sprain of other ligament of right ankle, initial encounter; M84.374A Stress fracture, right foot, initial encounter for fracture; M76.61 Achilles tendinitis, right leg; M72.2 Plantar fascial fibromatosis; S93.691A Other sprain of right foot, initial encounter; M65.9 Synovitis and tenosynovitis, unspecified; M21.6X1 Other acquired deformities of right foot; S93.421A Sprain of deltoid ligament of right ankle, initial encounter; W17.89XA Other fall from one level to another, initial encounter; Y92.89 Other specified places as the place of occurrence of the external cause
CPT/HCPCS: 15275; 27695; 27687; 27626; 28060; 73600; 73610; 76000; 96374; C1762; J2405; Q4211

== ENCOUNTER → 2021-05-12 15:57 | Outpatient (CLI) | payer BC, SELFPAY ==
--- NOTE | 2021-05-12 16:00 | CA_ITS ---
FINAL REPORT TECHNIQUE: Color Doppler, duplex Doppler and compression sonography of the right lower extremity venous system was performed. CLINICAL HISTORY: Right Calf pain. Post-op FINDINGS: There is no evidence of deep venous thrombosis from the level of the groin to the calf. The veins are patent and compressible. IMPRESSION: No evidence of deep venous thrombosis right lower extremity. Reviewed, Interpreted and Dictated by Juan Manuel Astudillo III, MD Transcribed by Dutch Markham Authenticated by Juan Manuel Astudillo III, MD on 05/12/2021 04:56:40 PM [facility]
== END ==
PROVIDERS: PCP Nurse Practitioner Family; Visit Provider Podiatrist
DX: M79.661 Pain in right lower leg (principal)
CPT/HCPCS: 93971

== ENCOUNTER → 2021-05-22 10:57 | Outpatient (CLI) | payer BC, SELFPAY ==
[2021-05-22 12:03] LABS: Basophils # 0.1 K/mm3 (0-0.2); Basophils % 0.7 % (0.1-2.0); Eosinophils # 0.1 K/mm3 (0.0-0.4); Eosinophils % 1.4 % (0.1-12.0); Hematocrit 39.8 % (37.0-47.0); Hemoglobin 13.5 g/dL (12.2-16.2); Lymphocytes # 2.5 K/mm3 (0.7-4.5); Mean Corpuscular Hemoglobin 31.3 pg (27.0-31.2); Mean Platelet Volume 8.5 fl (7.4-10.4); Monocytes # 0.5 K/mm3 (0.1-1.0); Monocytes % 6.9 % (1.7-9.3); Neutrophils # 4.4 K/mm3 (1.8-7.8); Platelet Count 266 K/mm3 (142-424); Red Blood Count 4.32 M/mm3 (4.20-5.40); Red Cell Distribution Width 13.4 % (11.5-17.5); White Blood Count 7.5 K/mm3 (4.8-10.8)
[2021-05-22 12:30] LABS: Chloride 97 mmol/L (98-107); Potassium 3.8 mmoL/L (3.5-5.1); Sodium 133 mmol/L (136-145)
[2021-05-22 12:32] LABS: Blood Urea Nitrogen 21 mg/dl (7-17); Estimated Glomerular Filt Rate 77 ml/min (>60); GFR (African American) 93 ML/MIN (>60)
[2021-05-22 12:33] LABS: Alanine Aminotransferase 15 U/L (12-78); Albumin Level 4.6 g/dl (3.5-5.0); Albumin/Globulin Ratio 1.6 (1.1-1.8); Alkaline Phosphatase 55 U/L (38-126); Anion Gap 9.8 mEq/L (5-15); Aspartate Amino Transferase 22 U/L (14-36); Bilirubin,Total 0.5 mg/dl (0.2-1.3); Calcium 9.1 mg/dl (8.4-10.2); Carbon Dioxide 30 mmol/L (22.0-30.0); Globulin 2.8 g/dL (1.3-3.2); Glucose 75 mg/dl (74-100); Total Protein,Serum 7.4 g/dl (6.3-8.2)
[2021-05-22 12:40] LABS: C-Reactive Protein 2.4 mg/L (0-4)
[2021-05-22 14:31] LABS: Erythrocyte Sedimentation Rate 27 mm/hr (0-20)
== END ==
PROVIDERS: PCP Nurse Practitioner Family; Visit Provider Podiatrist
DX: Z01.812 Encounter for preprocedural laboratory examination (principal); S91.301A Unspecified open wound, right foot, initial encounter
CPT/HCPCS: 36415; 80053; 85025; 85651; 86140

== ENCOUNTER 2021-05-27 14:03 | Outpatient (RCR) | payer BC, SELFPAY | END 2021-05-27 14:05 | disposition home or self-care (01) | LOC: PT 14:03 | PROVIDERS: PCP Nurse Practitioner Family; Visit Provider Podiatrist | DX: M25.371 Other instability, right ankle (principal); M72.2 Plantar fascial fibromatosis; Z98.890 Other specified postprocedural states ==

== ENCOUNTER → 2021-05-27 14:38 | Outpatient (CLI) | payer BC, SELFPAY | PROVIDERS: PCP Nurse Practitioner Family; Visit Provider Podiatrist | DX: Z01.812 Encounter for preprocedural laboratory examination (principal); Z11.52 Encounter for screening for COVID-19 | CPT/HCPCS: C9803; U0003; U0005 ==

== ENCOUNTER 2021-05-28 08:31 | Day surgery (SDC) | payer BC, SELFPAY ==
[2021-05-26 13:50] VITALS: BMI 35.4
[2021-05-28 08:45] VITALS: BP 131/73; PULSE 75; RESP 18; TEMP 36.2; O2SAT 96
--- NOTE | 2021-05-28 09:10 | HMH.ANESCL ---
[facility] Anesthesia Checklist - Patient Identification Patient Identification: Arm Band, Verbal (Name & ) - Structural Data Admitted From: Home Planned Operative Procedure/s: I and D of foot Consent for Planned Operative Procedure(s) Verified: Yes Verified Documents: Surgical Consent - Chart Verification Results Verified: CBC - Additional verifications Anesthesia Reactions: No Hx Blood Transfusions: No Blood Transfusion Reaction: No - Airway Assessment C-Spine Mobility Assessed: Yes TMJ Mobility Assessed: Yes Dentition: Good Dentition - Neurological Assessment Level of Consciousness: Awake, Alert, Appropriate - Anesthesia Plan ASA Class: II Anesthesia Type: General [facility] History I have reviewed the patient's past medical history: Yes Medical History: Reports:: Depression, Gastroesophageal Reflux Disease(GERD), Hyperlipidemia, Hypertension Denies:: Cancer, Diabetes Mellitus Type 1, Diabetes Mellitus Type 2, Internal Pacemaker, MRSA, Seizures *Have you ever received a pneumonia vaccine?: No *Have you received a flu vaccine this season?: Yes Other Medical History: Denies: Blood Transfusion Reaction Anesthesia experience/problems:: none Laterality Cases: Right: Carpal Tunnel Release, Bilateral: Other Other Surgeries: Yes: No Previous Surgery, Cardiac Catheterization, Cholecystectomy, Hysterectomy-Total, Hysterectomy-Partial, Other (ovarian cystectomy). No: Pacemaker Amputation: No Fractures: No - *Social History Last grade of school completed: Some college Smoking Status: Never smoker Alcohol Intake: never Alcohol Intake Frequency:: holidays/special occasions only Substance Use Type: denies use *Occupational Status:: employed Housing: house Household Members: family *Travel in the last 8 weeks: None - Psychiatric History Pschychiatric History:: Reports:: Depression Family Hx:: Hypertension, Cancer, Diabetes
--- NOTE | 2021-05-28 09:20 | HMH.OPNOTE ---
Date of procedure: 05/28/21 Pre-op Diagnosis:: 1. Status post foot surgery 03/26/21 2. Open wound of right foot 3. Abrasion, right ankle 4. Retained suture/suture abscess 5. Postoperative wound dehiscence 6. Obesity, Class II, BMI 35-39.9 Post-op Diagnosis:: Same Procedure performed:: 1. Right foot wound debridement 2. Right ankle incision and drainage, suture removal 3. Right foot delayed primary closure Surgeon:: Estefany Lora DPM [employer]:: Other (Rafa Fortune) Anesthesia: MAC, local (30cc 0.5% marcaine plain) Estimated blood loss (mL): 5 Clinical Note:: Patient is 45 y/o female who had surgery, 03/26/21: S/p Right modified Brostrum lateral ankle stabilization, deltoid ligament repair, plantar fasciotomy, ankle synovectomy, arthrotomy, gastroc recession, ankle (peroneal and posterior tibial) tenosynovectomy, application of graft, application of posterior splint. She scratched her plantar incision and it opened and started draining. She was seen in office but unable to tolerate a debridement. We discussed conservative versus surgical treatment options. We discussed conservative care including continued oral antibiotics and local wound care versus surgical incision and drainage. Patient understands that they could have wound healing complications including delayed healing and infection. We discussed that if the wound does not heal, it is possible that they may need further debridement. Patient understands if infection spreads into the bone, it may warrant proximal amputation and could result in further loss of digits, loss of partial foot or loss of leg. We discussed the risks and benefits in great detail. Other surgical risks include: prolonged pain and swelling, further infection requiring oral or IV antibiotics, delay in healing of soft tissue or bone, nerve or blood vessel damage, CRPS/RSD, DVT, anesthesia complications, and even . All questions answered. Patient verbalized understanding. Due to her anxiety and being unable to tolerate office procedure, she wants to proceed with incision and drainage, debridement and closure in the OR. Consent obtained. Operative findings:: Right ankle had several superficial abrasions noted, secondary to patient scratching. There was a retained suture x2 noted at the distal aspect of the right lateral ankle incision. The plantar heel had a wound over prior incision site. Predebridement wound measured 1.2 x 0.3 x 0.6 cm. The wound and thick callus skin were sharply excisional debrided with 15 blade, curette and forceps through skin, subcutaneous into/involving deep tissue. It did not extend to the calcaneus bone. There is no purulence malodor or drainage noted. Tissue culture taken of the thickened wound tissue. Post debridement: Right plantar heel wound measured 1.3 x 0.5 x 0.6cm and was 100% granular. Operative note:: On this date and time patient was deemed an appropriate surgical candidate. With informed consent signed, the patient was taken to the operating room. The patient was positioned supine. MAC anesthesia was induced. No tourniquet used. Pre-op right ankle and foot block given with 20 cc 0.5% marcaine plain. The right lower extremity was prepped and draped in a normal sterile fashion. IV clindamycin 900 mg infused. Right ankle incision and drainage, suture removal: There was superficial abrasion noted to the right lateral ankle secondary to the patient scratching. A 15 blade was used to make a small stab incision less than 0.2 x 0.1 x 0.1 cm. There was a retained suture x2 noted at the distal aspect of the incision. The sutures were removed in total without complication. No purulence malodor or drainage noted. There is no deep opening. Right wound debridement: Prior plantar fascial incision wound noted. The wound had thick periwound callus and mild maceration noted. 15 blade, curette and forceps used to sharply excisionally debride the thickened callus skin and wound full-thickness. A piece of
[2021-05-28 10:09] VITALS: BP 112/69; PULSE 76; RESP 18; TEMP 36.1; O2SAT 93
[2021-05-28 10:24] VITALS: BP 120/73; PULSE 73; RESP 18; O2SAT 99
[2021-05-28 10:39] VITALS: BP 118/70; PULSE 67; RESP 18; O2SAT 98
[2021-05-28 11:06] VITALS: BP 123/75; PULSE 69; RESP 18; O2SAT 100
--- NOTE | 2021-05-28 17:25 | HMH.ITSTN ---
post op ankle films cx by rad due to pt being discharged and not notified when pt was in PACU
== END 2021-05-28 11:06 | disposition home or self-care (01) ==
LOC: OR 08:32
PROVIDERS: PCP Nurse Practitioner Family; Visit Provider Podiatrist
PROC: (CPT 11043; principal; 2021-05-28 11:00)
DX: T81.31XA Disruption of external operation (surgical) wound, not elsewhere classified, initial encounter (principal)
CPT/HCPCS: 11043; 11042; 87070; 87077; 87186; 87205; J2405

== ENCOUNTER → 2021-06-24 15:35 | Outpatient (CLI) | payer BC, SELFPAY | PROVIDERS: Visit Provider Podiatrist | DX: S91.301A Unspecified open wound, right foot, initial encounter (principal); B95.8 Unspecified staphylococcus as the cause of diseases classified elsewhere | CPT/HCPCS: 87070; 87077; 87106; 87186; 87205 ==

== ENCOUNTER → 2021-07-03 14:21 | Outpatient (CLI) | payer BC, SELFPAY | PROVIDERS: PCP Family Medicine; Visit Provider Family Medicine | DX: N76.0 Acute vaginitis (principal); B37.3 Candidiasis of vulva and vagina; B96.89 Other specified bacterial agents as the cause of diseases classified elsewhere | CPT/HCPCS: 87086; 87210 ==

== ENCOUNTER → 2021-08-20 16:00 | Outpatient (CLI) | payer BC, SELFPAY ==
[2021-08-20 17:30] LABS: Alanine Aminotransferase 21 U/L (12-78); Albumin Level 4.2 g/dl (3.5-5.0); Albumin/Globulin Ratio 1.4 (1.1-1.8); Alkaline Phosphatase 59 U/L (38-126); Anion Gap 12.5 mEq/L (5-15); Aspartate Amino Transferase 22 U/L (14-36); Bilirubin,Total 0.5 mg/dl (0.2-1.3); Blood Urea Nitrogen 21 mg/dl (7-17); Calcium 9.7 mg/dl (8.4-10.2); Carbon Dioxide 27 mmol/L (22.0-30.0); Chloride 99 mmol/L (98-107); Chol/HDL Ratio 3.5 (1-3.5); Cholesterol 203 mg/dl (140-200); Estimated Glomerular Filt Rate 90 ml/min (>60); GFR (African American) 109 ML/MIN (>60); Glucose 103 mg/dl (74-100); HDL Cholesterol 58 mg/dl (40-60); Potassium 3.5 mmoL/L (3.5-5.1); Sodium 135 mmol/L (136-145); Total Protein,Serum 7.2 g/dl (6.3-8.2); Triglycerides 162 mg/dl (30-150); VLDL Cholesterol 32 mg/dL (0-40)
[2021-08-20 17:42] LABS: Direct LDL Cholesterol 94.38 mg/dL (100-129)
[2021-08-20 17:46] LABS: Basophils # 0.1 K/mm3 (0-0.2); Basophils % 1.4 % (0.1-2.0); Eosinophils # 0.1 K/mm3 (0.0-0.4); Eosinophils % 1.7 % (0.1-12.0); Hematocrit 39.8 % (37.0-47.0); Hemoglobin 13.9 g/dL (12.2-16.2); Lymphocytes # 2.9 K/mm3 (0.7-4.5); Lymphocytes % 37.8 % (10-50); Mean Corpuscular Hemoglobin 32.4 pg (27.0-31.2); Mean Corpuscular Volume 92.3 fl (81-99); Mean Platelet Volume 9.7 fl (7.4-10.4); Monocytes # 0.5 K/mm3 (0.1-1.0); Monocytes % 5.9 % (1.7-9.3); Neutrophils % 53.1 % (37.0-80.0); Platelet Count 305 K/mm3 (142-424); Red Blood Count 4.31 M/mm3 (4.20-5.40); Red Cell Distribution Width 13.6 % (11.5-17.5); White Blood Count 7.6 K/mm3 (4.8-10.8)
[2021-08-20 17:49] LABS: 25-OH Vitamin D, Total 28.9 ng/mL (30-100)
[2021-08-20 18:13] LABS: Hemoglobin A1C 5.3 % (4.0-6.0)
[2021-08-20 18:20] LABS: Vitamin B12 281 pg/mL (239-931)
== END ==
PROVIDERS: Visit Provider Family Medicine
DX: R20.0 Anesthesia of skin (principal); R20.2 Paresthesia of skin; I10 Essential (primary) hypertension; E78.5 Hyperlipidemia, unspecified; E55.9 Vitamin D deficiency, unspecified; R53.83 Other fatigue
CPT/HCPCS: 80053; 80061; 82306; 82607; 83036; 84443; 85025

== ENCOUNTER → 2021-11-17 15:33 | Outpatient (CLI) | payer BC, OTHER, SELFPAY ==
--- NOTE | 2021-11-17 15:42 | XR_ITS ---
FINAL REPORT CLINICAL HISTORY: pain at prox fibula Patient states she was walking on some stairs 2 weeks ago and her left knee popped , now with pain. Tubal ligation. Shielded. FINDINGS: LEFT KNEE Three views of the left knee were obtained. There is no acute fracture or dislocation. Visualized joint spaces are normally aligned. There is no joint effusion. Soft tissues are unremarkable. IMPRESSION: No acute bony abnormality. Reviewed, Interpreted and Dictated by Juan Manuel Astudillo III, MD Transcribed by Jayashree Jain Authenticated and [facility]
== END ==
PROVIDERS: PCP Family Medicine; Visit Provider Family Medicine
DX: M25.562 Pain in left knee (principal)
CPT/HCPCS: 73562

== ENCOUNTER 2022-02-22 19:52 | Emergency (ER) | payer BC, OTHER, SELFPAY ==
[2022-02-22] VITALS (7 sets, daily range): BP systolic 101–114; BP diastolic 57–67; PULSE 74–85; RESP 14–19; TEMP 36.6–36.8; O2SAT 96–100; BMI 37.4
--- NOTE | 2022-02-22 19:56 | ECG_ITS ---
APPROVED REPORT Exam: Resting ECG HR:79 bpm ECG Measurements Heart Rate 79 AXES [place] 143 P 71 QRSd 108 QRS 39 QT 393 T 65 QTc 428 Conclusion SINUS RHYTHM NONSPECIFIC T-WAVE ABNORMALITY BORDERLINE ECG UNCONFIRMED REPORT Electronically signed by : Eugenio Thurman MD 02/23/2022 21:11:54
--- NOTE | 2022-02-22 20:27 | XR_ITS ---
PROCEDURE INFORMATION: Exam: XR Chest Exam date and time: 02/22/2022 8:58 PM Age: 46 years old Clinical indication: Injury or trauma; Fall; Blunt trauma (contusions or hematomas) TECHNIQUE: Imaging protocol: Radiologic exam of the chest. Views: 4 or more views. COMPARISON: CR XR CHEST 2V 03/10/2021 3:30 PM FINDINGS: Lungs: No evidence of pneumonia or interstitial edema. Pleural spaces: Unremarkable. No pleural effusion. No pneumothorax. Heart/Mediastinum: Unremarkable. No cardiomegaly. Bones/joints: No visible fracture. IMPRESSION: 1. No evidence of pneumonia or interstitial edema. 2. No visible fracture.
--- NOTE | 2022-02-22 20:27 | XR_ITS ---
PROCEDURE INFORMATION: Exam: XR Pelvis Exam date and time: 02/22/2022 8:59 PM Age: 46 years old Clinical indication: Injury or trauma; Fall; Blunt trauma (contusions or hematomas); Bilateral; Pelvic region TECHNIQUE: Imaging protocol: Radiologic exam of the pelvis. Views: 1 or 2 view. COMPARISON: CR (PELVIS AP, HIP, PELVIS AP) 08/05/2018 2:47 PM FINDINGS: Bones/joints: No visible fracture or dislocation. Soft tissues: Unremarkable. IMPRESSION: No visible fracture or dislocation.
--- NOTE | 2022-02-22 20:27 | CT_ITS ---
PROCEDURE INFORMATION: Exam: CT Head Without Contrast Exam date and time: 02/22/2022 9:35 PM Age: 46 years old Clinical indication: Injury or trauma; Fall; Additional info: Fall, seizure like activiy vs syncope TECHNIQUE: Imaging protocol: Computed tomography of the head without contrast. Radiation optimization: All CT scans at this facility use at least one of these dose optimization techniques: automated exposure control; mA and/or kV adjustment per patient size (includes targeted exams where dose is matched to clinical indication); or iterative reconstruction. COMPARISON: MR HEAD/BRAIN WO CON 02/06/2020 3:06 PM FINDINGS: Brain: No intracranial bleed, suspicious mass, or mass effect. Ventricles appear unremarkable. Cerebral ventricles: See Brain finding. Paranasal sinuses: Visualized sinuses are unremarkable. No fluid levels. Mastoid air cells: Visualized mastoid air cells are well aerated. Bones/joints: Unremarkable. No acute fracture. Soft tissues: Unremarkable. IMPRESSION: No intracranial bleed, suspicious mass, or mass effect. Ventricles appear unremarkable.
--- NOTE | 2022-02-22 20:27 | CT_ITS ---
PROCEDURE INFORMATION: Exam: CT Cervical Spine Without Contrast Exam date and time: 02/22/2022 9:37 PM Age: 46 years old Clinical indication: Injury or trauma; Fall; Additional info: Fall right sided neck pain TECHNIQUE: Imaging protocol: Computed tomography of the cervical spine without contrast. Radiation optimization: All CT scans at this facility use at least one of these dose optimization techniques: automated exposure control; mA and/or kV adjustment per patient size (includes targeted exams where dose is matched to clinical indication); or iterative reconstruction. COMPARISON: CT HEAD/BRAIN WO CON 02/22/2022 9:35 PM FINDINGS: Bones/joints: No cervical fracture or subluxation. Straightening of normal cervical lordosis. This can indicate muscle spasm, or be voluntary positioning. Limited spondylosis most evident C5-C6 without CT evidence of critical stenosis. Lungs: Lung apices are normal. Soft tissues: See Bones/joints finding. IMPRESSION: 1. No cervical fracture or subluxation. 2. Straightening of normal cervical lordosis. This can indicate muscle spasm, or be voluntary positioning.
[2022-02-22 20:38] LABS: Chloride 88 mmol/L (98-107); Sodium 136 mmol/L (136-145)
[2022-02-22 20:40] LABS: Alanine Aminotransferase 21 U/L (12-78); Aspartate Amino Transferase 26 U/L (14-36); Blood Urea Nitrogen 15 mg/dl (7-17); Creatinine Clearance Estimated 109 mL/min (50-200); Estimated Glomerular Filt Rate 59 ml/min (>60); GFR (African American) 72 ML/MIN (>60)
[2022-02-22 20:41] LABS: Albumin Level 4.8 g/dl (3.5-5.0); Albumin/Globulin Ratio 1.3 (1.1-1.8); Alkaline Phosphatase 77 U/L (38-126); Anion Gap 11.6 mEq/L (5-15); Bilirubin,Total 0.4 mg/dl (0.2-1.3); Calcium 9.8 mg/dl (8.4-10.2); Carbon Dioxide 39 mmol/L (22.0-30.0); Globulin 3.6 g/dL (1.3-3.2); Glucose 99 mg/dl (74-100); Total Protein,Serum 8.4 g/dl (6.3-8.2)
[2022-02-22 20:44] LABS: Basophils # 0.2 K/mm3 (0-0.2); Basophils % 1.7 % (0.1-2.0); Eosinophils # 0.1 K/mm3 (0.0-0.4); Eosinophils % 1.5 % (0.1-12.0); Hematocrit 45.5 % (37.0-47.0); Hemoglobin 15.5 g/dL (12.2-16.2); Lymphocytes # 3.7 K/mm3 (0.7-4.5); Mean Corpuscular HGB Conc 34.2 g/dL (31.8-35.4); Mean Corpuscular Hemoglobin 31.4 pg (27.0-31.2); Mean Corpuscular Volume 91.8 fl (81-99); Mean Platelet Volume 8.5 fl (7.4-10.4); Monocytes # 0.6 K/mm3 (0.1-1.0); Monocytes % 6.6 % (1.7-9.3); Neutrophils # 4.7 K/mm3 (1.8-7.8); Neutrophils % 50.3 % (37.0-80.0); Platelet Count 376 K/mm3 (142-424); Potassium 2.6 mmoL/L (3.5-5.1); Red Blood Count 4.95 M/mm3 (4.20-5.40); Red Cell Distribution Width 13.3 % (11.5-17.5); White Blood Count 9.3 K/mm3 (4.8-10.8)
--- NOTE | 2022-02-22 20:45 | PC.NURSE ---
Dr. Condon notified of critical potassium
--- NOTE | 2022-02-22 20:55 | PC.NURSE ---
Dr. Condon at
--- NOTE | 2022-02-22 21:19 | PC.NURSE ---
Urine sent to lab
[2022-02-22 21:26] LABS: Appearance,Urine CLEAR (Clear); Bilirubin,Urine Negative (Negative); Blood, Urine Negative (Negative); Color,Urine YELLOW (Yellow); Glucose,Urine (UA) Negative (Negative); Ketones,Urine Negative (Negative); Leukocyte Esterase,Urine Negative (Negative); Microscopic, Urine URINE MICROSCOPIC (MICROSCOPIC); Nitrate,Urine Negative (Negative); PH,Urine 6.5 (5.0-8.5); Protein,Urine Negative (Negative)
[2022-02-22 21:26] LABS: Troponin I < 0.01 ng/ml (0.00-0.034)
--- NOTE | 2022-02-22 21:27 | PC.NURSE ---
Family at BS
[2022-02-22 21:32] LABS: WBC,Urine Occasional #/hpf (0-3)
--- NOTE | 2022-02-22 21:35 | HMH.EDNEU ---
Discharge Plan Disposition Patient Disposition: Home, Self-Care Chief Complaint: Neuro Symptoms/Deficit Prescriptions Prescriptions: No Action sertraline 100 mg tablet 100 mg PO DAILY losartan 100 mg tablet 100 mg PO DAILY Qty: 90 3RF hydrochlorothiazide 25 mg tablet 25 mg PO DAILY Qty: 90 3RF Rx Instructions: TAKE 1 TABLET BY MOUTH ONCE DAILY FOR FLUID All Day Allergy (cetirizine) 10 mg capsule 10 mg PO DAILY gentamicin 0.1 % ointment 1 applic TOPICAL BID 21 Days Qty: 15 0RF acetaminophen-codeine 300-30 mg tablet 1 tab PO TID PRN (Reason: pain) Qty: 30 1RF ondansetron 4 mg tablet,disintegrating 4 mg PO Q6H PRN (Reason: nausea and vomiting) Qty: 30 2RF Rx Instructions: just recieved-postop omeprazole 40 mg capsule,delayed release(DR/EC) See Rx Instructions .ROUTE .COMPLEX Qty: 90 1RF Dose Instruction: TAKE 1 CAPSULE BY MOUTH EVERY DAY Rx Instructions: TAKE 1 CAPSULE BY MOUTH EVERY DAY nitrofurantoin monohyd/m-cryst [Macrobid] 100 mg capsule 100 mg PO Q12H 5 Days Qty: 10 0RF Rx Instructions: must administer with a meal/food liraglutide (weight loss) 3 mg/0.5 mL (18 mg/3 mL) pen injector See Rx Instructions SQ .COMPLEX Qty: 15 5RF Rx Instructions: inject subcutaneously once daily: week 1 = 0.6 mg; week 2 = 1.2 mg; week 3 = 1.8 mg; week 4 = 2.4 mg; then 3 mg daily SQ fluconazole [Diflucan] 100 mg tablet 100 mg PO DAILY Qty: 5 0RF ondansetron HCl 4 mg tablet 4 mg PO Q8H PRN (Reason: nausea and vomiting) Qty: 30 0RF ergocalciferol (vitamin D2) 50,000 UNIT capsule 50,000 unit PO DAILY Referrals Follow up/Referrals: Gurinder Rodriguez MD [Primary Care Provider] - See instructions Clinical Impressions Clinical Impression: Syncope and collapse, Syncope, vasovagal, Acute hypokalemia, Central cord syndrome Instructions Patient Instructions: DI for Syncope in Adults (Fainting) Discharge ED Provider: Luis Condon Neuro HPI General Chief Complaint: Neuro Symptoms/Deficit Stated Complaint: found unresponsive Time Seen by Provider: 02/22/22 20:15 Mode of Arrival: Family Vehicle Source of Information: Patient, Spouse and Medical Record Limitations: No Limitations Description of Symptoms (Recalled from ER Triage Doc. by RN): Pt c/o weakness, BUE numbnes and tingling. Pt also does not remember what precipitated her needing to come to the ER. He states pt has been fine all day and then went to go to the bathroom because her stomach started cramping . He then states he heard loud a thud and came into the bathroom to discover pt was down in the floor and her arms were curled into herself & tight and legs pulled up and stiff. Pt does not remember the occurance. NIHSS 0 at this time. History of Present Illness HPI Narrative: pt with apparent syncopal episode just prior to admit - pt does not remember event - has some cold sx and has crampy abd pain Onset (ago): hour(s) Timing confirmed by: family member History of same: No Severity: moderate Context: sudden onset On Anticoagulants: No Treatments Prior to Arrival: none Related Data Home Medications Medication Instructions Recorded Confirmed cetirizine 10 mg capsule (All Day 10 mg PO DAILY Allergy symptoms 08/08/18 11/17/21 Allergy (cetirizine)) ergocalciferol (vitamin D2) 1,250 50,000 unit PO DAILY Supplement 03/21/21 11/17/21 mcg (50,000 unit) capsule sertraline 100 mg tablet 100 mg PO DAILY Depression 04/01/21 11/17/21 Previous Rx's Medication Instructions Recorded ondansetron 4 mg disintegrating 4 mg PO Q6H PRN nausea and 03/25/21 tablet vomiting #30 tabs gentamicin 0.1 % topical ointment 1 applic topical BID 3 weeks #15 06/24/21 grams hydrochlorothiazide 25 mg tablet 25 mg PO DAILY Fluid #90 tabs 08/21/21 losartan 100 mg tablet 100 mg PO DAILY #90 tabs 08/21/21 acetaminophen 300 mg-codeine 30 mg 1 tab PO TID PRN pain #30 tabs 11/17/21 t
--- NOTE | 2022-02-22 21:42 | CT_ITS ---
PROCEDURE INFORMATION: Exam: CTA Neck With Contrast Exam date and time: 02/22/2022 10:57 PM Age: 46 years old Clinical indication: Other: Found unresponsive, memory loss; Additional info: Neuro symtoms TECHNIQUE: Imaging protocol: Computed tomographic angiography of the neck with contrast. 3D rendering (Not supervised by radiologist): MIP and/or 3D reconstructed images were created by the technologist. Radiation optimization: All CT scans at this facility use at least one of these dose optimization techniques: automated exposure control; mA and/or kV adjustment per patient size (includes targeted exams where dose is matched to clinical indication); or iterative reconstruction. Contrast material: ISOVUE 370; Contrast volume: 100 ml; Contrast route: INTRAVENOUS (IV); COMPARISON: CT CERVICAL SPINE WO CON 02/22/2022 9:37 PM FINDINGS: Right common carotid artery: No stenosis. No dissection or occlusion. Right internal carotid artery: No stenosis of the extracranial segment. No dissection or occlusion. Right external carotid artery: No occlusion or stenosis of the origin. Left common carotid artery: No stenosis. No dissection or occlusion. Left internal carotid artery: No stenosis of the extracranial segment. No dissection or occlusion. Left external carotid artery: No occlusion or stenosis of the origin. Right vertebral artery: No stenosis. No dissection or occlusion. Left vertebral artery: No stenosis. No dissection or occlusion. Soft tissues: Normal. No significant soft tissue swelling. Bones/joints: No acute fracture. Other findings: No dissection, aneurysm or stenosis in the extracranial carotid systems or vertebral arteries. IMPRESSION: No dissection, aneurysm or stenosis in the extracranial carotid systems or vertebral arteries. REFERENCES: NASCET CRITERIA. The degree of stenosis in the cervical segment of the internal carotid artery is based on NASCET criteria. Normal is no stenosis. Mild is less than 50% stenosis. Moderate is 50-69% stenosis. Severe is 70% to 99% stenosis. Total occlusion is no detectable patent lumen.
--- NOTE | 2022-02-22 21:42 | CT_ITS ---
PROCEDURE INFORMATION: Exam: CTA Head With Contrast, Arteriography Exam date and time: 02/22/2022 10:57 PM Age: 46 years old Clinical indication: Other: Found unresponsive, memory loss; Additional info: Neuro symtoms TECHNIQUE: Imaging protocol: Computed tomographic angiography of the head with contrast. Exam focused on the arteries. 3D rendering (Not supervised by radiologist): MIP and/or 3D reconstructed images were created by the technologist. Radiation optimization: All CT scans at this facility use at least one of these dose optimization techniques: automated exposure control; mA and/or kV adjustment per patient size (includes targeted exams where dose is matched to clinical indication); or iterative reconstruction. Contrast material: ISOVUE 370; Contrast volume: 100 ml; Contrast route: INTRAVENOUS (IV); COMPARISON: CT HEAD/BRAIN WO CON 02/22/2022 9:35 PM FINDINGS: ANTERIOR CIRCULATION: Right internal carotid artery: Intracranial segment is patent with no significant stenosis. No aneurysm. Right middle cerebral artery: No occlusion or significant stenosis. No aneurysm. Right anterior cerebral artery: No occlusion or significant stenosis. No aneurysm. Left internal carotid artery: Intracranial segment is patent with no significant stenosis. No aneurysm. Left middle cerebral artery: No occlusion or significant stenosis. No aneurysm. Left anterior cerebral artery: No occlusion or significant stenosis. No aneurysm. POSTERIOR CIRCULATION: Right vertebral artery: No occlusion or significant stenosis. No aneurysm. Left vertebral artery: No occlusion or significant stenosis. No aneurysm. Basilar artery: No occlusion or significant stenosis. No aneurysm. Right posterior cerebral artery: No occlusion or significant stenosis. No aneurysm. Left posterior cerebral artery: No occlusion or significant stenosis. No aneurysm. Other arteries: No visualized dissection, aneurysm or flow-limiting lesion in the main intracranial arterial branching, given the limitation. Brain: See Other arteries finding. Cerebral ventricles: No ventriculomegaly. Bones/joints: Unremarkable. No acute fracture. Soft tissues: Unremarkable. Other findings: Detail is somewhat limited on 2.5 mm axial imaging and reconstructions. IMPRESSION: 1. Detail is somewhat limited on 2.5 mm axial imaging and reconstructions. 2. No visualized dissection, aneurysm or flow-limiting lesion in the main intracranial arterial branching, given the limitation.
--- NOTE | 2022-02-22 21:59 | PC.NURSE ---
Pt gone to RAD for CT
--- NOTE | 2022-02-22 22:08 | PC.NURSE ---
Pt back from RAD
--- NOTE | 2022-02-22 22:10 | PC.NURSE ---
pt back from CT's
--- NOTE | 2022-02-22 22:49 | PC.NURSE ---
MD speaking with pt in room at this time
== END 2022-02-22 23:27 | disposition home or self-care (01) ==
PROVIDERS: Emergency Provider Emergency Medicine; PCP Family Medicine
DX: R55 Syncope and collapse (principal); E87.6 Hypokalemia; S14.129A Central cord syndrome at unspecified level of cervical spinal cord, initial encounter
CPT/HCPCS: 70450; 70496; 70498; 71045; 72125; 72170; 80053; 81001; 83735; 84484; 85025; 93005; 99285; Q9967

== ENCOUNTER → 2022-02-25 10:06 | Outpatient (CLI) | payer BC, SELFPAY | PROVIDERS: PCP Family Medicine; Visit Provider Family Medicine | DX: G43.409 Hemiplegic migraine, not intractable, without status migrainosus (principal); R55 Syncope and collapse; R53.83 Other fatigue; R29.2 Abnormal reflex | CPT/HCPCS: 95816 ==

== ENCOUNTER → 2022-03-02 10:25 | Outpatient (CLI) | payer BC, SELFPAY ==
[2022-03-02 19:39] LABS: Anion Gap 12.4 mEq/L (5-15); Blood Urea Nitrogen 10 mg/dl (7-17); Calcium 10.1 mg/dl (8.4-10.2); Carbon Dioxide 36 mmol/L (22.0-30.0); Chloride 93 mmol/L (98-107); Estimated Glomerular Filt Rate 77 ml/min (>60); GFR (African American) 93 ML/MIN (>60); Glucose 94 mg/dl (74-100); Potassium 3.4 mmoL/L (3.5-5.1); Sodium 138 mmol/L (136-145)
== END ==
PROVIDERS: PCP Family Medicine; Visit Provider Family Medicine
DX: E87.6 Hypokalemia (principal)
CPT/HCPCS: 80048

== ENCOUNTER → 2022-03-10 20:15 | Outpatient (CLI) | payer BC, SELFPAY ==
[2022-03-10 22:09] LABS: Vitamin B12 444 pg/mL (239-931)
[2022-03-10 22:19] LABS: Folate 7.32 ng/mL
[2022-03-12 15:56] LABS: Potassium 3.3 mmoL/L (3.5-5.1)
== END ==
PROVIDERS: Family Medicine; PCP Nurse Practitioner Family; Visit Provider Nurse Practitioner Family
DX: R55 Syncope and collapse (principal); G93.40 Encephalopathy, unspecified; R29.2 Abnormal reflex; R53.83 Other fatigue; E87.6 Hypokalemia; Z86.69 Personal history of other diseases of the nervous system and sense organs
CPT/HCPCS: 82607; 82746; 84132

== ENCOUNTER → 2022-03-17 13:49 | Outpatient (CLI) | payer BC, SELFPAY ==
--- NOTE | 2022-03-17 13:53 | MR_ITS ---
FINAL REPORT CLINICAL HISTORY: syncope, collapse, encepha dizziness since syncope and collapse. blurred vision. 20ml prohance given. FINDINGS: Multiplanar MR imaging of the brain was performed without and with contrast. There is no evidence of intracranial hemorrhage or mass. There are low-lying cerebellar tonsils without evidence of Chiari malformation. No abnormal extra-axial fluid collection is seen. The ventricular size is within normal limits. There is no evidence of shift of the midline structures. The posterior fossa and brainstem have an unremarkable appearance. No area of abnormal restricted diffusion is identified. No abnormal contrast enhancement is seen. Normal major vessel vascular flow voids are noted. There is moderate mucosal thickening of the right maxillary sinus. IMPRESSION: No acute intracranial abnormality identified. Reviewed, Interpreted and Dictated by Juan Manuel Astudillo III, MD Transcribed by Collette Smith Authenticated and [facility]
== END ==
PROVIDERS: PCP Family Medicine; Visit Provider Nurse Practitioner Family
DX: R55 Syncope and collapse (principal); G93.40 Encephalopathy, unspecified; R29.2 Abnormal reflex
CPT/HCPCS: 70553; A9576

== ENCOUNTER → 2022-03-17 15:17 | Outpatient (CLI) | payer BC, SELFPAY | PROVIDERS: PCP Family Medicine; Visit Provider Nurse Practitioner Family | DX: R55 Syncope and collapse (principal); R53.83 Other fatigue; Z86.69 Personal history of other diseases of the nervous system and sense organs | CPT/HCPCS: 93270 ==

== ENCOUNTER → 2022-03-20 13:34 | Outpatient (CLI) | payer BC, SELFPAY ==
--- NOTE | 2022-03-20 13:37 | XR_ITS ---
FINAL REPORT CLINICAL HISTORY: LT foot pain FINDINGS: 3 views of the left foot were obtained. There is no acute fracture or dislocation. There is mild elix valgus deformity. There are mild degenerative changes at the 1st MTP joint. The soft tissues are unremarkable. IMPRESSION: Mild degenerative change at the 1st MTP joint. Reviewed, Interpreted and Dictated by Juan Manuel Astudillo III, MD Transcribed by Dutch Markham Authenticated and [facility]
== END ==
PROVIDERS: PCP Family Medicine; Visit Provider Family Medicine
DX: M79.672 Pain in left foot (principal)
CPT/HCPCS: 73630

== ENCOUNTER → 2022-03-30 22:27 | Outpatient (CLI) | payer BC, SELFPAY ==
[2022-03-30 18:04] LABS: Anion Gap 11.3 mEq/L (5-15); Blood Urea Nitrogen 23 mg/dl (7-17); Calcium 9.8 mg/dl (8.4-10.2); Carbon Dioxide 32 mmol/L (22.0-30.0); Chloride 98 mmol/L (98-107); Estimated Glomerular Filt Rate 77 ml/min (>60); GFR (African American) 93 ML/MIN (>60); Glucose 84 mg/dl (74-100); Potassium 3.3 mmoL/L (3.5-5.1); Sodium 138 mmol/L (136-145)
== END ==
PROVIDERS: Visit Provider Family Medicine
DX: E87.6 Hypokalemia (principal)
CPT/HCPCS: 80048

== ENCOUNTER → 2022-04-22 11:11 | Outpatient (CLI) | payer BC, SELFPAY ==
[2022-04-22 19:06] LABS: Alanine Aminotransferase 16 U/L (12-78); Albumin Level 4.6 g/dl (3.5-5.0); Albumin/Globulin Ratio 1.4 (1.1-1.8); Alkaline Phosphatase 64 U/L (38-126); Anion Gap 11.6 mEq/L (5-15); Aspartate Amino Transferase 22 U/L (14-36); Bilirubin,Total 0.3 mg/dl (0.2-1.3); Blood Urea Nitrogen 17 mg/dl (7-17); Calcium 9.4 mg/dl (8.4-10.2); Carbon Dioxide 29 mmol/L (22.0-30.0); Chloride 100 mmol/L (98-107); Estimated Glomerular Filt Rate 77 ml/min (>60); GFR (African American) 93 ML/MIN (>60); Globulin 3.2 g/dL (1.3-3.2); Glucose 118 mg/dl (74-100); Potassium 3.6 mmoL/L (3.5-5.1); Sodium 137 mmol/L (136-145); Total Protein,Serum 7.8 g/dl (6.3-8.2)
== END ==
PROVIDERS: PCP Physician Assistant; Visit Provider Physician Assistant
DX: E87.6 Hypokalemia (principal)
CPT/HCPCS: 80053

== ENCOUNTER → 2022-06-09 13:15 | Outpatient (CLI) | payer BC, SELFPAY ==
[2022-06-09 18:24] LABS: Chloride 101 mmol/L (98-107); Potassium 3.6 mmoL/L (3.5-5.1); Sodium 138 mmol/L (136-145)
[2022-06-09 18:27] LABS: Anion Gap 8.6 mEq/L (5-15); Blood Urea Nitrogen 19 mg/dl (7-17); Carbon Dioxide 32 mmol/L (22.0-30.0); Estimated Glomerular Filt Rate 77 ml/min (>60); GFR (African American) 93 ML/MIN (>60)
[2022-06-09 18:28] LABS: Glucose 88 mg/dl (74-100)
== END ==
PROVIDERS: PCP Physician Assistant; Visit Provider Physician Assistant
DX: N39.0 Urinary tract infection, site not specified (principal); E87.6 Hypokalemia; B96.29 Other Escherichia coli [E. coli] as the cause of diseases classified elsewhere
CPT/HCPCS: 80048; 87086; 87088; 87186

== ENCOUNTER → 2022-07-06 13:47 | Outpatient (CLI) | payer BC, SELFPAY | PROVIDERS: PCP Family Medicine; Visit Provider Family Medicine | DX: N23 Unspecified renal colic (principal) | CPT/HCPCS: 87086 ==

== ENCOUNTER → 2022-07-10 23:39 | Outpatient (CLI) | payer BC, SELFPAY ==
[2022-07-10 17:56] LABS: Anion Gap 10.6 mEq/L (5-15); Blood Urea Nitrogen 20 mg/dl (7-17); Calcium 8.9 mg/dl (8.4-10.2); Carbon Dioxide 31 mmol/L (22.0-30.0); Chloride 97 mmol/L (98-107); Estimated Glomerular Filt Rate 107 ml/min (>60); GFR (African American) 129 ML/MIN (>60); Glucose 84 mg/dl (74-100); Potassium 3.6 mmoL/L (3.5-5.1); Sodium 135 mmol/L (136-145)
== END ==
PROVIDERS: PCP Family Medicine; Visit Provider Family Medicine
DX: E87.6 Hypokalemia (principal); R30.9 Painful micturition, unspecified
CPT/HCPCS: 80048; 87086

== ENCOUNTER → 2022-07-14 12:30 | Outpatient (CLI) | payer BC, SELFPAY | PROVIDERS: PCP Family Medicine; Visit Provider Family Medicine | DX: R30.9 Painful micturition, unspecified (principal) | CPT/HCPCS: 87086 ==

== ENCOUNTER → 2022-08-18 13:17 | Outpatient (POV) | payer BC, SELFPAY | PROVIDERS: Visit Provider Dermatology | DX: Z00.00 Encounter for general adult medical examination without abnormal findings (principal) ==

== ENCOUNTER → 2022-08-28 13:11 | Outpatient (CLI) | payer BC, SELFPAY ==
[2022-08-28 15:00] LABS: Alanine Aminotransferase 22 U/L (12-78); Albumin Level 4.1 g/dl (3.5-5.0); Alkaline Phosphatase 59 U/L (38-126); Anion Gap 15.8 mEq/L (5-15); Aspartate Amino Transferase 28 U/L (14-36); Bilirubin,Indirect 0.3 mg/dL (0.0-0.9); Bilirubin,Total 0.3 mg/dl (0.2-1.3); Bilirubin,Unconjugated 0.5 mg/dL (0.0-1.1); Blood Urea Nitrogen 14 mg/dl (7-17); Calcium 9.1 mg/dl (8.4-10.2); Carbon Dioxide 27 mmol/L (22.0-30.0); Chloride 99 mmol/L (98-107); Chol/HDL Ratio 2.6 (1-3.5); Cholesterol 172 mg/dl (140-200); Estimated Glomerular Filt Rate 89 ml/min (>60); GFR (African American) 108 ML/MIN (>60); Glucose 66 mg/dl (74-100); HDL Cholesterol 65 mg/dl (40-60); Potassium 3.8 mmoL/L (3.5-5.1); Sodium 138 mmol/L (136-145); Triglycerides 217 mg/dl (30-150); VLDL Cholesterol 43 mg/dL (0-40)
[2022-08-28 15:08] LABS: Basophils % 0.4 % (0.1-2.0); Eosinophils # 0.1 K/mm3 (0.0-0.4); Eosinophils % 1.6 % (0.1-12.0); Hematocrit 40.7 % (37.0-47.0); Hemoglobin 13.6 g/dL (12.2-16.2); Lymphocytes # 2.5 K/mm3 (0.7-4.5); Lymphocytes % 37.4 % (10-50); Mean Corpuscular HGB Conc 33.5 g/dL (31.8-35.4); Mean Corpuscular Hemoglobin 32.2 pg (27.0-31.2); Mean Corpuscular Volume 96.3 fl (81-99); Mean Platelet Volume 8.6 fl (7.4-10.4); Monocytes # 0.4 K/mm3 (0.1-1.0); Monocytes % 6.3 % (1.7-9.3); Neutrophils # 3.6 K/mm3 (1.8-7.8); Neutrophils % 54.3 % (37.0-80.0); Platelet Count 264 K/mm3 (142-424); Red Blood Count 4.23 M/mm3 (4.20-5.40); Red Cell Distribution Width 13.5 % (11.5-17.5); White Blood Count 6.7 K/mm3 (4.8-10.8)
[2022-08-28 15:12] LABS: Direct LDL Cholesterol 74.32 mg/dL (100-129)
== END ==
LOC: RT 13:14
PROVIDERS: PCP Family Medicine; Visit Provider Nurse Practitioner
DX: R06.00 Dyspnea, unspecified (principal); R00.1 Bradycardia, unspecified; I10 Essential (primary) hypertension; E87.6 Hypokalemia; E78.5 Hyperlipidemia, unspecified
CPT/HCPCS: 36415; 80048; 80061; 80076; 83735; 85025; 93306

== ENCOUNTER → 2022-10-21 11:00 | Outpatient (CLI) | payer BC, SELFPAY ==
[2022-10-21 19:47] LABS: Alanine Aminotransferase 23 U/L (12-78); Albumin Level 4.6 g/dl (3.5-5.0); Albumin/Globulin Ratio 1.6 (1.1-1.8); Alkaline Phosphatase 72 U/L (38-126); Anion Gap 13.9 mEq/L (5-15); Aspartate Amino Transferase 26 U/L (14-36); Bilirubin,Total 0.4 mg/dl (0.2-1.3); Blood Urea Nitrogen 13 mg/dl (7-17); Calcium 9.7 mg/dl (8.4-10.2); Carbon Dioxide 28 mmol/L (22.0-30.0); Chloride 102 mmol/L (98-107); Chol/HDL Ratio 3.2 (1-3.5); Cholesterol 232 mg/dl (140-200); Estimated Glomerular Filt Rate 77 ml/min (>60); GFR (African American) 93 ML/MIN (>60); Globulin 2.9 g/dL (1.3-3.2); Glucose 103 mg/dl (74-100); HDL Cholesterol 73 mg/dl (40-60); Potassium 3.9 mmoL/L (3.5-5.1); Sodium 140 mmol/L (136-145); Total Protein,Serum 7.5 g/dl (6.3-8.2); Triglycerides 166 mg/dl (30-150); VLDL Cholesterol 33 mg/dL (0-40)
[2022-10-21 19:58] LABS: Direct LDL Cholesterol 106.22 mg/dL (100-129)
[2022-10-26 17:11] LABS: F026-IgE Pork < 0.10 kU/L (Class 0); F027-IgE Beef < 0.10 kU/L (Class 0); F088-IgE Lamb < 0.10 kU/L (Class 0); Immunoglobulin E, Total 43 IU/mL (6-495); O215-IgE Alpha-Gal < 0.10 kU/L (Class 0)
== END ==
PROVIDERS: PCP Emergency Medicine; Visit Provider Emergency Medicine
DX: E78.5 Hyperlipidemia, unspecified (principal)
CPT/HCPCS: 80053; 80061

== ENCOUNTER → 2022-12-22 23:52 | Outpatient (CLI) | payer BC, SELFPAY | PROVIDERS: PCP Physician Assistant; Visit Provider Physician Assistant | DX: N39.0 Urinary tract infection, site not specified (principal) | CPT/HCPCS: 87086 ==

== ENCOUNTER → 2022-12-24 16:46 | Outpatient (CLI) | payer BC, SELFPAY ==
--- NOTE | 2022-12-24 16:59 | XR_ITS ---
PROCEDURE INFORMATION: Exam: XR Left Ankle Exam date and time: 12/24/2022 4:59 PM Age: 47 years old Clinical indication: Pain; Ankle; Left; Additional info: Left ankle pain TECHNIQUE: Imaging protocol: Radiologic exam of the left ankle. Views: 3 or more views. COMPARISON: CR ANKCMLT XR ankle LT min 3V 02/08/2018 2:10 PM FINDINGS: Bones/joints: Small tibiotalar effusion noted. The mortise joint space is symmetric. Small calcaneal spur. No visible fracture or dislocation. Soft tissues: Normal. IMPRESSION: 1. Small tibiotalar effusion noted. 2. No visible fracture or dislocation.
== END ==
PROVIDERS: PCP Physician Assistant; Visit Provider Physician Assistant
DX: M25.572 Pain in left ankle and joints of left foot (principal)
CPT/HCPCS: 73610

== ENCOUNTER → 2023-02-16 09:32 | Outpatient (CLI) | payer BC, SELFPAY ==
[2023-02-16 19:09] LABS: Alanine Aminotransferase 17 U/L (12-78); Albumin Level 4.3 g/dl (3.5-5.0); Albumin/Globulin Ratio 1.3 (1.1-1.8); Alkaline Phosphatase 79 U/L (38-126); Anion Gap 13.7 mEq/L (5-15); Aspartate Amino Transferase 27 U/L (14-36); Bilirubin,Total 0.5 mg/dl (0.2-1.3); Blood Urea Nitrogen 12 mg/dl (7-17); Carbon Dioxide 27 mmol/L (22.0-30.0); Chloride 100 mmol/L (98-107); Chol/HDL Ratio 3.7 (1-3.5); Cholesterol 177 mg/dl (140-200); Estimated Glomerular Filt Rate 89 ml/min (>60); GFR (African American) 108 ML/MIN (>60); Globulin 3.2 g/dL (1.3-3.2); Glucose 101 mg/dl (74-100); HDL Cholesterol 48 mg/dl (40-60); Potassium 3.7 mmoL/L (3.5-5.1); Sodium 137 mmol/L (136-145); Total Protein,Serum 7.5 g/dl (6.3-8.2); Triglycerides 107 mg/dl (30-150); VLDL Cholesterol 21 mg/dL (0-40)
[2023-02-16 19:15] LABS: Hemoglobin A1C 4.9 % (4.0-6.0)
[2023-02-16 19:20] LABS: Direct LDL Cholesterol 94.02 mg/dL (100-129)
[2023-02-16 19:29] LABS: Free Thyroxine Index 2.1 ug/dL (5.93-13.13); T4 (Thyroxine) 6.1 ug/dl (5.53-11.0); Triiodothryronine (T3) Uptake 35 % (23.5-40.5)
[2023-02-16 19:42] LABS: Thyroid Stimulating Hormone 1.15 uIU/mL (0.465-4.68)
== END ==
PROVIDERS: PCP Physician Assistant; Visit Provider Physician Assistant
DX: E66.9 Obesity, unspecified (principal); Z68.35 Body mass index [BMI] 35.0-35.9, adult
CPT/HCPCS: 80053; 80061; 83036; 84436; 84443; 84479

== ENCOUNTER → 2023-02-16 16:30 | Outpatient (CLI) | payer BC, SELFPAY ==
[2023-02-18 11:13] LABS: Thyroid Peroxidase Antibodies 16 IU/mL (0-34)
[2023-02-20 08:17] LABS: Thyroid Stimulating Immunoglob <0.10 IU/L (0.00-0.55)
== END ==
LOC: LAB.DROPOF 02-23 16:28 → LAB 02-23 16:32
PROVIDERS: PCP Physician Assistant; Visit Provider Physician Assistant
DX: R79.89 Other specified abnormal findings of blood chemistry (principal); E66.9 Obesity, unspecified; Z68.35 Body mass index [BMI] 35.0-35.9, adult
CPT/HCPCS: 84443; 84445; 86376

== ENCOUNTER → 2023-03-16 23:00 | Outpatient (CLI) | payer BC, SELFPAY | PROVIDERS: PCP Internal Medicine; Visit Provider Internal Medicine | DX: R30.0 Dysuria (principal); B96.89 Other specified bacterial agents as the cause of diseases classified elsewhere | CPT/HCPCS: 87086 ==

== ENCOUNTER 2023-04-19 23:25 | Outpatient (CLI) | payer BC, SELFPAY | END 2023-04-19 23:59 | LOC: LAB.DROPOF 23:26 | PROVIDERS: PCP Internal Medicine; Visit Provider Internal Medicine | DX: N39.0 Urinary tract infection, site not specified (principal) | CPT/HCPCS: 87086 ==

== ENCOUNTER 2023-07-13 12:53 | Outpatient (CLI) | payer BC, SELFPAY ==
--- NOTE | 2023-07-13 12:55 | XR_ITS ---
FINAL REPORT CLINICAL HISTORY: cough x 1 month productive cough nonsmoker FINDINGS: 2 views of the chest were obtained. On the lateral view, there is a wedge-shaped opacity inferiorly, favor atelectasis. Pulmonary vascularity is normal. Heart and mediastinum are unremarkable. No pleural effusion is present. IMPRESSION: Wedge-shaped opacity inferiorly on the lateral view, favor atelectasis. Recommend follow-up radiographs or chest CT. Authenticated and ERN
== END 2023-07-13 23:59 ==
LOC: RAD 12:54
PROVIDERS: PCP Physician Assistant; Visit Provider Internal Medicine
DX: R05.9 Cough, unspecified (principal)
CPT/HCPCS: 71046

== ENCOUNTER 2023-07-15 14:09 | Outpatient (CLI) | payer BC, SELFPAY ==
--- NOTE | 2023-07-15 14:09 | CT_ITS ---
FINAL REPORT CLINICAL HISTORY: abnormal chest x-ray COMPARISON: None FINDINGS: Axial CT images of the chest were obtained with contrast. Coronal and sagittal reformatted images were also obtained. This study was performed with techniques to keep radiation doses as low as reasonably achievable, (ALARA). Individualized dose reduction techniques using automated exposure control or adjustment of mA and/or KV according to the patient's size were employed. There is no evidence of mediastinal or hilar mass or adenopathy. No axillary mass or adenopathy is identified. On lung window images, no pulmonary mass or dominant pulmonary nodule is identified. There is a linear opacity in the anterior left lower lobe, consistent with atelectasis. There is mild posterior left lower lobe atelectasis as well as small bilateral pleural effusions. A small pericardial effusion is present as well. Limited images of the upper abdomen reveal that the patient is post cholecystectomy. IMPRESSION: Linear opacity in the anterior left lower lobe consistent with atelectasis. There is mild posterior left lobe atelectasis present as well. Small bilateral pleural effusions, and a small pericardial effusion. Reviewed, Interpreted and Dictated by Juan Manuel Astudillo III, MD Transcribed by Brittany Reddy Authenticated and [facility]
[2023-07-15 14:32] LABS: Blood Urea Nitrogen 18 mg/dl (7-17); Estimated Glomerular Filt Rate 67 ml/min (>60); GFR (African American) 81 ML/MIN (>60)
[2023-07-15] MEDS: SODIUM CHLORIDE 0.9% 10ML SYR (RAD ONLY) 10 ML IV (14:56)
[2023-07-15] MEDS: IOPAMIDOL-370 (76%);100ML BOTTLE 75 ML IV (14:56)
== END 2023-07-15 23:59 ==
LOC: RAD 14:09
PROVIDERS: PCP Internal Medicine; Visit Provider Internal Medicine
DX: R93.89 Abnormal findings on diagnostic imaging of other specified body structures (principal); R05.3 Chronic cough
CPT/HCPCS: 36415; 71260; 82565; 84520; Q9967

== ENCOUNTER 2024-03-30 13:51 | Outpatient (CLI) | payer BC, SELFPAY ==
[2024-03-30 17:13] LABS: White Blood Count 6.4 K/mm3 (4.8-10.8)
[2024-03-30 17:14] LABS: Basophils % 0.5 % (0.1-2.0); Eosinophils % 1.7 % (0.1-12.0); Hematocrit 35.8 % (37.0-47.0); Hemoglobin 12.5 g/dL (12.2-16.2); Lymphocytes % 44.9 % (10-50); Mean Corpuscular HGB Conc 34.9 g/dL (31.8-35.4); Mean Corpuscular Hemoglobin 30.7 pg (27.0-31.2); Mean Platelet Volume 10.7 fl (7.4-10.4); Monocytes % 6.4 % (1.7-9.3); Neutrophils % 46.3 % (37.0-80.0); Platelet Count 246 K/mm3 (142-424); Red Blood Count 4.07 M/mm3 (4.20-5.40); Red Cell Distribution Width 12.6 % (11.5-17.5)
[2024-03-30 17:15] LABS: Eosinophils # 0.1 K/mm3 (0.0-0.4); Lymphocytes # 2.9 K/mm3 (0.7-4.5); Monocytes # 0.4 K/mm3 (0.1-1.0)
[2024-03-30 17:32] LABS: Albumin Level 4.1 g/dl (3.5-5.0); Chloride 102 mmol/L (98-107); Potassium 3.5 mmoL/L (3.5-5.1); Sodium 135 mmol/L (136-145)
[2024-03-30 17:35] LABS: Alanine Aminotransferase 19 U/L (12-78); Albumin/Globulin Ratio 1.5 (1.1-1.8); Alkaline Phosphatase 57 U/L (38-126); Anion Gap 7.5 mEq/L (5-15); Aspartate Amino Transferase 27 U/L (14-36); Bilirubin,Total 0.3 mg/dl (0.2-1.3); Blood Urea Nitrogen 15 mg/dl (7-17); Calcium 9.3 mg/dl (8.4-10.2); Carbon Dioxide 29 mmol/L (22.0-30.0); Estimated Glomerular Filt Rate 76 ml/min (>60); GFR (African American) 92 ML/MIN (>60); Globulin 2.7 g/dL (1.3-3.2); Glucose 82 mg/dl (74-100); Total Protein,Serum 6.8 g/dl (6.3-8.2)
[2024-03-30 17:47] LABS: 25-OH Vitamin D, Total 33.7 ng/mL (30-100)
[2024-03-30 21:17] LABS: Hemoglobin A1C 4.8 % (4.0-6.0)
[2024-03-31 10:07] LABS: HIV Combo NEGATIVE (Negative)
[2024-04-01 07:09] LABS: HCV Ab Non Reactive (Non Reactive)
== END 2024-03-30 23:59 | disposition home or self-care (01) ==
LOC: LAB.DROPOF 03-31 09:41
PROVIDERS: PCP Internal Medicine; Visit Provider Internal Medicine
DX: Z13.1 Encounter for screening for diabetes mellitus (principal); Z00.00 Encounter for general adult medical examination without abnormal findings; Z13.21 Encounter for screening for nutritional disorder
CPT/HCPCS: 80053; 82306; 83036; 85025; 86803; 87389

== ENCOUNTER 2024-10-11 12:01 | Outpatient (CLI) | payer BC, SELFPAY ==
[2024-10-11 14:23] LABS: Microscopic, Urine URINE MICROSCOPIC (MICROSCOPIC)
[2024-10-11 14:56] LABS: Bilirubin,Urine Negative (Negative); Color,Urine YELLOW (Yellow); Glucose,Urine (UA) Negative (Negative); Ketones,Urine Negative (Negative); Leukocyte Esterase,Urine Negative (Negative); PH,Urine 7.5 (5.0-8.5); Protein,Urine TRACE (Negative); Specific Gravity, Urine 1.015 (1.005-1.030); Urobilinogen,Urine 1.0 EU/dl (0.2)
[2024-10-11 17:13] LABS: RBC,Urine Occasional #/hpf (0-3)
[2024-10-11 17:14] LABS: Amorphous Sediment,Urine 1+ /lpf; Bacteria,Urine Trace /lpf; Calcium Oxalate Crystals,Urine 1+ /lpf
--- OUTSIDE RECORDS SUMMARY | 2024-10-16 12:03 | XMS_ITS ---
Author Organization Unknown Medications Medication Instructions Effective Dates (start - stop) Status 3 ML liraglutide 6 MG/ML Pen Injector [Saxenda] 4954-48-94P14:00:00.000+00 :00 - Completed {21 (methylprednisolone 4 MG Oral Tablet) } Pack 1309-08-02R76:00:00.000+00 :00 - Completed losartan potassium 100 MG Or al Tablet 4877-26-26T50:00:00.000+00 :00 - Completed losartan potassium 100 MG Or al Tablet 1187-13-66R33:00:00.000+00 :00 - Completed {6 (azithromycin 250 MG Oral Tablet) } Pack 0801-84-46Q58:00:00.000+00 :00 - Completed Microencapsulated potassium chloride 20 MEQ Extended Release Oral Tablet 0711-14-08V78:00:0 0.000+00 :00 - Completed hydrochlorothiazide 25 MG Or al Tablet 6279-65-36W56:00:00.000+00 :00 - Completed fluconazole 150 MG Oral Tablet 2 151-92-08F45:00:00.000+00 :00 - Completed ciprofloxacin 500 MG Oral Tablet 4006-95-30L68:00:00.000+00 :00 - Completed hydrochlorothiazide 25 MG Or al Tablet 4590-28-50W05:00:00.000+00 :00 - Completed sertraline 100 MG Oral Tablet 20 01-11-18:00:00.000+00 :00 - Completed fluconazole 100 MG Oral Tablet 2 678-52-10D30:00:00.000+00 :00 - Completed Microencapsulated potassium chloride 20 MEQ Extended Release Oral Tablet 7900-99-46B42:00:0 0.000+00 :00 - Completed losartan potassium 100 MG Or al Tablet 0729-00-95C88:00:00.000+00 :00 - Completed hydrochlorothiazide 25 MG Or al Tablet 7592-04-75S70:00:00.000+00 :00 - Completed hydrochlorothiazide 25 MG Or al Tablet 1054-18-44X06:00:00.000+00 :00 - Completed {21 (methylprednisolone 4 MG Oral Tablet) } Pack [id number]:00:00.000+00 :00 - Completed 0.5 ML semaglutide 0.5 MG/ML Auto-Injector [Wegovy] 2117-12-76L38:00:00.000+00 :00 - Completed Microencapsulated potassium chloride 20 MEQ Extended Release Oral Tablet 4570-40-71W82:00:0 0.000+00 :00 - Completed losartan potassium 100 MG Or al Tablet 7875-51-10V30:00:00.000+00 :00 - Completed losartan potassium 100 MG Or al Tablet 5453-80-44S12:00:00.000+00 :00 - Completed meloxicam 7.5 MG Oral Tablet 06-10-29:00:00.000+00 :00 - Completed - 6893-52-15P37:00 :00.000+00 :00 - Completed nitrofurantoin, macrocrystal s 25 MG / nitrofurantoin, monohydrate 75 MG Oral Capsule 4416-22-36P55:00:00.000+00 :00 - Completed sertraline 100 MG Oral Tablet 01-12-17:00:00.000+00 :00 - Completed omeprazole 40 MG Delayed Rel ease Oral Capsule 9737-89-77W05:00:00.000+00 :00 - Completed sertraline 100 MG Oral Tablet 02-08-12:00:00.000+00 :00 - Completed sertraline 100 MG Oral Tablet 01-02-24:00:00.000+00 :00 - Completed ondansetron 4 MG Oral Tablet 05-23-10:00:00.000+00 :00 - Completed sertraline 100 MG Oral Tablet 04-05-15:00:00.000+00 :00 - Completed atorvastatin 10 MG Oral Tablet 2 350-69-43L46:00:00.000+00 :00 - Completed omeprazole 40 MG Delayed Rel ease Oral Capsule 4326-67-17Y81:00:00.000+00 :00 - Completed sertraline 100 MG Oral Tablet 02-01-20:00:00.000+00 :00 - Completed omeprazole 40 MG Delayed Rel ease Oral Capsule 3117-52-44B07:00:00.000+00 :00 - Completed Microencapsulated potassium chloride 20 MEQ Extended Release Oral Tablet 3929-58-71P69:00:0 0.000+00 :00 - Completed sertraline 100 MG Oral Tablet 02-04-02T:00:00.000+00 :00 - Completed omeprazole 40 MG Delayed Rel ease Oral Capsule 7808-88-65D37:00:00.000+00 :00 - Completed omeprazole 40 MG Delayed Rel ease Oral Capsule 4607-70-81P72:00:00.000+00 :00 - Completed nitrofurantoin, macrocrystal s 25 MG / nitrofurantoin, monohydrate 75 MG Oral Capsule 2797-15-50T79:00:00.000+00 :00 - Completed acetaminophen 300 MG / codei ne phosphate 30 MG Oral Tablet 2368-84-82L52:00:00.000+00 :00 - Completed Patient Care team information Name Category Status Period Participants - - Proposed period not known -
== END 2024-10-11 23:59 | disposition home or self-care (01) ==
LOC: LAB.DROPOF 10-16 12:01
PROVIDERS: PCP Internal Medicine; Visit Provider Internal Medicine
DX: R30.0 Dysuria (principal)
CPT/HCPCS: 81001; 87086

== ENCOUNTER 2024-10-16 12:09 | Outpatient (CLI) | payer BC, SELFPAY ==
--- NOTE | 2024-10-16 12:11 | XR_ITS ---
FINAL REPORT CLINICAL HISTORY: right foot pain FINDINGS: RIGHT FOOT 3 views of the right foot were obtained. There is no acute fracture or dislocation. There is a small plantar spur. There are degenerative changes at the dorsal talonavicular joint. A small accessory navicular is noted. Visualized joint spaces are normally aligned. Soft tissues are unremarkable. IMPRESSION: No acute bony abnormality. Reviewed, Interpreted and Dictated by Bubba Jimenez MD Transcribed by Eugenia Montes Authenticated and [facility]
--- OUTSIDE RECORDS SUMMARY | 2024-10-16 12:39 | XMS_ITS ---
Author Organization Unknown Medications Medication Instructions Effective Dates (start - stop) Status 3 ML liraglutide 6 MG/ML Pen Injector [Saxenda] [id number]:00:00.000+00 :00 - Completed {21 (methylprednisolone 4 MG Oral Tablet) } Pack [id number]:00:00.000+00 :00 - Completed losartan potassium 100 MG Or al Tablet 3946-73-47E07:00:00.000+00 :00 - Completed losartan potassium 100 MG Or al Tablet 0537-03-65L32:00:00.000+00 :00 - Completed {6 (azithromycin 250 MG Oral Tablet) } Pack 7274-12-01R27:00:00.000+00 :00 - Completed Microencapsulated potassium chloride 20 MEQ Extended Release Oral Tablet 1844-25-94W37:00:0 0.000+00 :00 - Completed hydrochlorothiazide 25 MG Or al Tablet 6883-21-15S39:00:00.000+00 :00 - Completed fluconazole 150 MG Oral Tablet 2 043-68-04A29:00:00.000+00 :00 - Completed ciprofloxacin 500 MG Oral Tablet 4159-06-71H81:00:00.000+00 :00 - Completed hydrochlorothiazide 25 MG Or al Tablet 1688-83-35V21:00:00.000+00 :00 - Completed sertraline 100 MG Oral Tablet 20 01-11-18:00:00.000+00 :00 - Completed fluconazole 100 MG Oral Tablet 2 040-32-18Z95:00:00.000+00 :00 - Completed Microencapsulated potassium chloride 20 MEQ Extended Release Oral Tablet 2720-76-40A35:00:0 0.000+00 :00 - Completed losartan potassium 100 MG Or al Tablet 5505-06-02R01:00:00.000+00 :00 - Completed hydrochlorothiazide 25 MG Or al Tablet 0205-17-26Z52:00:00.000+00 :00 - Completed hydrochlorothiazide 25 MG Or al Tablet 7165-93-56Y57:00:00.000+00 :00 - Completed {21 (methylprednisolone 4 MG Oral Tablet) } Pack 5552-24-44Y58:00:00.000+00 :00 - Completed 0.5 ML semaglutide 0.5 MG/ML Auto-Injector [Wegovy] 2501-07-81A43:00:00.000+00 :00 - Completed Microencapsulated potassium chloride 20 MEQ Extended Release Oral Tablet 0517-55-61M85:00:0 0.000+00 :00 - Completed losartan potassium 100 MG Or al Tablet 1433-75-43N21:00:00.000+00 :00 - Completed losartan potassium 100 MG Or al Tablet 5513-38-19V31:00:00.000+00 :00 - Completed meloxicam 7.5 MG Oral Tablet 06-10-29:00:00.000+00 :00 - Completed - 5182-51-64E40:00 :00.000+00 :00 - Completed nitrofurantoin, macrocrystal s 25 MG / nitrofurantoin, monohydrate 75 MG Oral Capsule 8340-32-99D07:00:00.000+00 :00 - Completed sertraline 100 MG Oral Tablet 01-12-17:00:00.000+00 :00 - Completed omeprazole 40 MG Delayed Rel ease Oral Capsule 3100-33-25R01:00:00.000+00 :00 - Completed sertraline 100 MG Oral Tablet 02-08-12:00:00.000+00 :00 - Completed sertraline 100 MG Oral Tablet 01-02-24:00:00.000+00 :00 - Completed ondansetron 4 MG Oral Tablet 05-23-10:00:00.000+00 :00 - Completed sertraline 100 MG Oral Tablet 04-05-15:00:00.000+00 :00 - Completed atorvastatin 10 MG Oral Tablet 2 033-50-43G01:00:00.000+00 :00 - Completed omeprazole 40 MG Delayed Rel ease Oral Capsule [id number]:00:00.000+00 :00 - Completed sertraline 100 MG Oral Tablet 02-01-20:00:00.000+00 :00 - Completed omeprazole 40 MG Delayed Rel ease Oral Capsule 4133-96-67N67:00:00.000+00 :00 - Completed Microencapsulated potassium chloride 20 MEQ Extended Release Oral Tablet 2763-54-89V58:00:0 0.000+00 :00 - Completed sertraline 100 MG Oral Tablet 02-04-02T:00:00.000+00 :00 - Completed omeprazole 40 MG Delayed Rel ease Oral Capsule 3501-08-15G60:00:00.000+00 :00 - Completed omeprazole 40 MG Delayed Rel ease Oral Capsule 0249-88-17P62:00:00.000+00 :00 - Completed nitrofurantoin, macrocrystal s 25 MG / nitrofurantoin, monohydrate 75 MG Oral Capsule 4462-76-16R80:00:00.000+00 :00 - Completed acetaminophen 300 MG / codei ne phosphate 30 MG Oral Tablet 2237-19-61E61:00:00.000+00 :00 - Completed Patient Care team information Name Category Status Period Participants - - Proposed period not known -
== END 2024-10-16 23:59 | disposition home or self-care (01) ==
LOC: RAD 12:10
PROVIDERS: PCP Nurse Practitioner Family; Visit Provider Nurse Practitioner Family
DX: M79.671 Pain in right foot (principal); R82.90 Unspecified abnormal findings in urine
CPT/HCPCS: 73630; 87086

== ENCOUNTER 2024-11-22 12:00 | Outpatient (CLI) | payer BC, SELFPAY ==
--- OUTSIDE RECORDS SUMMARY | 2016-06-05 14:40 | XMS_ITS | Encounter Summary ---
Author Organization [facility] Address [address] [place] [address] Care Team Providers Care Yard Coordinator Name Role Phone Eugenio Boltno MD Primary Care Provider + Reason for Visit * Diagnostic Medical (Routine) - Canceled Specialty Diagnoses / Procedures Referred By Contac t Referred To Contact Cardiology Diagnoses Chest pressure Procedures Cardiac Event Monitor Marie Cunningham APRN [facility] [address] [facility] [address] [place] [address] Phone: tel: fax: Referral ID Status Reason Start Date Expiration Date V isits Requested Visits Authorized [id number] Canceled 06/05/2016 06/05/2017 1 1 Encounter Details Date Type Department Care Team (Late st Contact Info) Description 06/05/2016 1:40 PM EST Hospital Encounter [facility] [address] [facility] [address] [place] [address] Social History Tobacco Use Types Packs/Day Years [...] documented as of this encounter Care Teams Yard Coordinator Relationship Specialty Start Date End Date Eugenio Bolton MD PCP - General Family Medicine 06/05/16 10/26/16 documented as of this encounter
--- OUTSIDE RECORDS SUMMARY | 2016-08-07 14:15 | XMS_ITS | Encounter Summary ---
Author Organization [facility] Address [address] [place] [address] Care Team Providers Care Hydroelectric Plant Electrician Name Role Phone Eugenio Bolton MD Primary Care Provider + Reason for Referral * Hospital - Outpatient (Routine) - Closed Specialty Diagnoses / Procedures Referred By Delores t Referred To Contact Sleep Medicine Diagnoses Snoring Obstructive sleep apnea, adult Procedures Home Sleep Study Jim Coker MD [address] [place] [address] Phone: tel: fax: Jim Coker MD [address] [place] [address] Phone: tel: fax: Referral ID Status Reason Start Date Expiration Date Visits Re quested Visits Authorized [id number] Closed 08/04/2016 08/04/2017 1 1 Reason for Visit * Hospital - Outpatient (Routine) - Closed Specialty Diagnoses / Procedures Referred By Contac t Referred To Contact Sleep Medicine Diagnoses Snoring Obstructive sleep apnea, adult Procedures Home Sleep Study Jim Coker MD [address] [place] [address] Phone: tel: fax: Jim Coker MD [address] [place] [address] Phone: tel: fax: Referral ID Status Reason Start Date Expiration Date Visits Re quested Visits Authorized [id number] Closed 08/04/2016 08/04/2017 1 1 Encounter Details Date Type Department Care Team (Latest Contact Info) Description 08/07/2016 2:15 PM EDT Hospital Encounter [facility] [address] [facility] [address] [place] [address] Jim Coker MD [address] [facility] [address] [place] [address] Snoring; Obstructive sleep apnea, adult [...] and tachycardia. She has history of hypertension [place] scores 19/24 height 65 inches weight 208 [...] significant positional effect #3 significant nocturnal hypoxemia [place] B: Home sleep test with Uzma PDX device [place] C: #1 obesity #2 hypertension #3 hyperlipidemia [...] Ms. Cunningham and Dr. Hoang Coker MD [facility] Sleep Medicine Pulmonary and Critical Care Medicine [...] documented as of this encounter Care Teams Hydroelectric Plant Electrician Relationship Specialty Start Date End Date Eugenio Bolton MD PCP - General Family Medicine 06/05/16 10/26/16 documented as of this encounter
[2024-11-22 16:16] LABS: Alanine Aminotransferase 12 U/L (12-78); Albumin Level 4.3 g/dl (3.5-5.0); Albumin/Globulin Ratio 1.7 (1.1-1.8); Alkaline Phosphatase 61 U/L (38-126); Anion Gap 10.0 mEq/L (5-15); Aspartate Amino Transferase 23 U/L (14-36); Bilirubin,Total 0.3 mg/dl (0.2-1.3); Blood Urea Nitrogen 14 mg/dl (7-17); Calcium 9.1 mg/dl (8.4-10.2); Carbon Dioxide 31 mmol/L (22.0-30.0); Chloride 103 mmol/L (98-107); Creatinine,Serum 0.90 mg/dl (0.52-1.04); Estimated Glomerular Filt Rate 66 ml/min (>60); GFR (African American) 80 ML/MIN (>60); Globulin 2.6 g/dL (1.3-3.2); Glucose 65 mg/dl (74-100); Potassium 4.0 mmoL/L (3.5-5.1); Sodium 140 mmol/L (136-145); Total Protein,Serum 6.9 g/dl (6.3-8.2)
[2024-11-22 16:34] LABS: 25-OH Vitamin D, Total 28.6 ng/mL (30-100)
[2024-11-23 12:12] LABS: LH 73.4 mIU/mL (.)
[2024-11-23 13:26] LABS: FSH >200.0 mIU/mL (.)
--- OUTSIDE RECORDS SUMMARY | 2024-11-24 12:10 | XMS_ITS | Clinical Summary ---
Author Organization [facility] Address [address] [place] [address] Care Team Providers Care Rf Microwave Engineer Name Role Phone Gurinder Rodriguez MD Primary Care Provider [phone] Social History Tobacco Use Types Packs/Day Years Used Date Smoking Tobacco: Never Assessed Comments Unknown Sex and Gender Information Value Date Recorded Sex Assigned at Not on file Legal Sex Female 6:06 PM EDT Gender Identity Not on file Sexual Orientation Not on file Last Filed Vital Signs Vital Sign Reading Time Taken Comments Blood Pressure 96/66 08/28/2022 2:38 PM EDT Pulse 70 08/28/2022 2:38 PM EDT Temperature - - Respiratory Rate - - Oxygen Saturation - - Inhaled Oxygen Concentration - - Weight 102 kg (225 lb) 08/28/2022 2:38 PM EDT Height 165.1 cm (5' 5 ) 08/28/2022 2:38 PM EDT Body Mass Index 37.44 08/28/2022 2:38 PM EDT Plan of Treatment Health Maintenance Due Date Last Done Comments [facility]-Depression Screening 1974 [facility]-Infant/Child/Adol SDOH Screenings 1974 [facility]- SDOH Screenings 1992 [facility]-Adult SDOH Screenings 1992 [facility]-Pap Smear 1995 [facility]-Cervical Cancer Screening 2004 [facility]-HPV/Cotest 2004 CT Colonography 2019 Colonoscopy 2019 FIT-DNA 2019 FIT 2019 FOBT 2019 Sigmoidoscopy 2019 [facility]-Colorectal Cancer Screening 2019 [id number] Vaccine (3 - season) 2023 05/31/2020, 05/01/2020 [facility]-Pneumococcal Vaccine: 50 + Years (1 of 1 - PCV) 2024 [facility]-Zoster Vaccines (1 of 2) 2024 [facility]-Influenza Vaccine (#1) 12/11/202402/24, 01/31/2020, 02/13/2019 [facility]-DTaP,Tdap,and Td Vaccine s (2 - Td or Tdap) 10/04/2031 10/03/2021 [facility]-Hepatitis B Vaccines Completed 008, 07/05/2007, 02/15/2007 HPV Vaccines Aged Out No longer eligi ble based on patient's age to complete this topic [facility]-HIB Vaccines Aged Out No longer e ligible based on patient's age to complete this topic [facility]-Hepatitis A Vaccines Aged Out No longer eligible based on patient's age to complete this topic [facility]-IPV Vaccines Aged Out No longer e ligible based on patient's age to complete this topic [facility]-Rotavirus Vaccines Aged Out No lo nger eligible based on patient[place] [address] ANTHEM Care Teams Rf Microwave Engineer Relationship Specialty Start Date End Date Gurinder Rodriguez MD [phone] (work) PCP - General 08/31/22
--- OUTSIDE RECORDS SUMMARY | 2024-11-24 12:10 | XMS_ITS | Clinical Summary ---
Author Organization [facility] Address [address] [place] [address] Care Team Providers Care Manager Portable Name Role Phone Dhruv Alberta DONITA Primary Care Provider [phone] Allergies Active Allergy Reactions Criticality Noted Date Comments Sulfa Antibiotics Swelling,Rash Low 2016 Medications cetirizine (zyrTEC) 10 MG tablet Take 1 tablet by mouth Daily. Active omeprazole (priLOSEC) 20 MG capsule Take 1 capsule by mouth Daily. Active ibuprofen (ADVIL,MOTRIN) 800 MG tablet Take 1 tablet by mouth Every 8 (Eight) Hours As Needed for Mild Pain . 40 tablet 01/19/2018 11:09 AM EDT 01/19/2018 Active vilazodone (VIIBRYD) 10 MG tablet tablet Take 1 tablet by mouth Daily. Active losartan (Cozaar) 50 MG tablet Take 1 tablet by mouth Daily. 30 tablet 3 02/19/2020 Active metoprolol tartrate (LOPRESSOR) 25 MG tablet Take 1 tablet by mouth 2 (Two) Times a Day. 60 tablet 11 02/19/2020 Active hydroCHLOROthia zide (HYDRODIURIL) 25 MG tablet Take 1 tablet by mouth Daily. 02/19/2020 Active sertraline (ZOLOFT) 100 MG tablet Take 1 tablet by mouth Daily. 02/16/2020 Active Active Problems Problem Noted Date Diagnosed Date Precordial pain 02/08/2020 KIM (dyspnea on exertion) 02/08/2020 Essential hypertension 02/08/2020 Palpitations 02/08/2020 Other fatigue 02/08/2020 Abnormal EKG 02/08/2020 Family history of premature CAD 02/08/2020 Dizziness 02/08/2020 Obstructive sleep apnea, adult 10/16/2016 Non morbid obesity due to excess calories 2016 Snoring 08/04/2016 Hyperlipidemia GERD (gastroesophageal reflux disease) Depression Family history of breast cancer Overview (07/29/2020): Mother diagnosed at 56 Genetic testing was negative Pt was BRCA Negative Resolved Problems Problem Noted Date Diagnosed Date Resolved Date Menorrhagia 01/18/2018 07/29/2020 Heavy menstrual bleeding Family History Medical History Relation Name Comments No Known Problems Brother Diabetes Father Heart attack Father cabg x3 Heart disease Father Hypertension Father Heart attack Maternal Grandmother Ovarian cancer Maternal Grandmother unkno wn Breast cancer Mother Cancer Mother Hypertension Mother Heart attack Paternal Grandfather Stroke Paternal Grandmother No Known Problems Sister Relation Name Status Comments Brother Alive Father Alive Maternal Grandmother Mother Alive Paternal Grandfather Paternal Grandmother Sister Alive Social History Tobacco Use Types Packs/Day Years [...] Sign Reading Time Taken Comments Blood Pressure 138/84 07/16/2023 10:14 PM EDT Pulse 64 07/16/2023 10:20 PM EDT Temperature 36.5 C (97.7 F) 07/16/2023 7:46 PM EDT Respiratory Rate 18 07/16/2023 7:46 PM EDT Oxygen Saturation 94% 07/16/2023 10:20 PM EDT Inhaled Oxygen Concentration - - Weight 90.7 kg (200 lb) 07/16/2023 7:46 PM EDT Height 165.1 cm (5' 5 ) 07/16/2023 7:46 PM EDT Body Mass Index 33.28 07/16/2023 7:46 PM EDT Plan of Treatment Health Maintenance Due Date Last Done Comments LIPID PANEL 1974 HEPATITIS C SCREENING 07/10/2016 COLOGUARD 2019 COLON CANCER SCREENING 5 YEA R SIGMOIDOSCOPY 2019 COLONOSCOPY 2019 [address] CANCER SCREENING 2019 CT COLONOGRAPHY 2019 FECAL OCCULT BLOOD TEST 2019 FIT Testing (1 year) 2019 ANNUAL PHYSICAL 07/29/2021 07/29/2020 Annual Gynecologic Pelvic an d Breast Exam 08/12/2023 08/10/2022 COVID-19 Vaccine (3 - 2023-2 5 season) 2023 05/31/2020, 05/01/2020 Pneumococcal Vaccine 50+ (1 of 1 - PCV) 2024 ZOSTER VACCINE (1 of 2) 2024 INFLUENZA VACCINE 01/10/2025 02/01/2023, , 01/31/2020, Additional history exists MAMMOGRAM 04/27/2026 04/27/2024, 03/12, 02/06/2022, Additional history exists TDAP/TD VACCINES (3 - Td or Tdap) 11/12/2032 023, 10/03/2021 Procedures Procedure Name Priority Date/Time Associated Diagnosis Comments MAMMO SCREENING DIGITAL TOMOSYNTHESIS BILATERAL W CAD Routine 04/27/2024 2:51 PM EST Screening mammogram for breast cancer from Last 3 Months or Most Recently Relevant to Health Maintenance Results * Mammo Screening Digital Tomosynthesis Bilateral With CAD (04/27/2024 2:51 PM EST) Anatomical Region Laterality Modality Breast N/A Mammography 05/02/2024 5:57 PM EST Impressions 05/02/2024 5:59 PM EST No findings suspicious for malignancy. ACR BI-RADS CATEGORY: 1, NEGATIVE RECOMMENDATION: Yearly mammogram, yearly clinical breast exam, and encourage self breast awareness. As the patient's calculated lifetime risk of breast cancer 16.5%, she is considered at intermediate risk for developing breast malignancy and qualifies for intermediate risk screening with breast MRI. CAD was used. The standard false negative rate of mammography is between 10% and 25%. Complex patterns or increased breast density will markedly elevate the false negative rate of mammography. A letter, in lay terminology, with the results of this exam will be mailed to the patient. If there is a palpable area of concern, biopsy should be considered regardless of imaging findings. This report was finalized on 05/02/2024 5:59 PM by Dorcas Tapia MD. Narrative 05/02/2024 5:59 PM EST ROUTINE DIGITAL SCREENING MAMMOGRAM WITH TOMOSYNTHESIS HISTORY: Routine screening. IMAGE COMPARISON: Extending to 2018. TECHNIQUE: Low dose full field digital breast tomosynthesis imaging was performed with 2D and 3D acquisitions consisting of bilateral CC and MLO views. FINDINGS: There are scattered fibroglandular densities. The fibroglandular pattern appears stable. There is no mass, worrisome microcalcifications, or architectural distortion to suggest development of malignancy. Carmencita Interiano MD IMG MAMMOGRAPHY ORDERABLES Final Result from Last 3 Months or Most Recently Relevant to Health Maintenance Insurance [employer] Advance Directives * CPR (Attempt to Resuscitate) (Latest Code Status on File) Date Activated Date Inactivated Comments 01/19/2018 10:22 AM 01/19/2018 1:29 PM Question Answer Comments Code Status (Patient has no pulse and is not breathing): CPR (Attempt to Resuscitate) Medical Interventions (Patie nt has pulse or is breathing): Full Level Of Support Discussed With: Patient Care Teams Manager Portable Relationship Specialty Start Date End Date Alberta Bartlett APRN [address] [place] [address] PCP - General Internal Medicine 02/28/24
== END 2024-11-22 23:59 | disposition home or self-care (01) ==
LOC: LAB.DROPOF 11-24 12:00
PROVIDERS: PCP Nurse Practitioner Family; Visit Provider Nurse Practitioner Family
DX: N91.2 Amenorrhea, unspecified (principal); R23.2 Flushing
CPT/HCPCS: 80053; 82306; 82670; 83001; 83002; 84144

== ENCOUNTER 2025-02-23 07:33 | Outpatient (CLI) | payer BC, SELFPAY ==
--- OUTSIDE RECORDS SUMMARY | 2016-06-05 13:40 | XMS_ITS | Encounter Summary ---
Author Organization [facility] Address [address] [place] [address] Care Team Providers Care Vamper Name Role Phone Eugenio Bolton MD Primary Care Provider + Reason for Visit * Diagnostic Medical (Routine) - Canceled Specialty Diagnoses / Procedures Referred By Contac t Referred To Contact Cardiology Diagnoses Chest pressure Procedures Cardiac Event Monitor Marie Cunningham APRN [facility] [address] [facility] [address] [place] [address] Phone: tel: fax: Referral ID Status Reason Start Date Expiration Date V isits Requested Visits Authorized [id number] Canceled 06/05/2016 06/05/2017 1 1 Encounter Details Date Type Department Care Team (Late st Contact Info) Description 06/05/2016 1:40 PM EST Hospital Encounter [facility] [address] [facility] [address] [place] [address] Social History Tobacco Use Types Packs/Day Years Used Date Smoking Tobacco: Never Smokeless Tobacco: Never Alcohol Use Standard Drinks/Week Comments Yes 0 (1 standard drink = 0.6 oz pur e alcohol) AUDIT-C Answer Date Recorded Q1: How often do you have a drink containing alc ohol? Monthly or less 03/19/2020 Q2: How many drinks containi ng alcohol do you have on a typical day when you are drinking? 1 or 2 03/19/2020 Q3: How often do you have si x or more drinks on one occasion? Never 03/19/2020 Abuse Screen Answer Date Recorded Feels Unsafe at Home or Work/School no 07/16/2023 Feels Threatened by Someone no 08/2023 Does Anyone Try to Keep You From Having Contact with Others or Doing Things Outside Your Home? no 07/16/2023 Physical Signs of Abuse Present no 07/16/2023 Comments No Sex and Gender Information Value Date Recorded Sex Assigned at Not on file Legal Sex Female 12:05 PM EDT Gender Identity Not on file Sexual Orientation Not on file documented as of this encounter Functional Status documented as of this encounter Plan of Treatment Not on file documented as of this encounter Visit Diagnoses Not on filedocumented in this encounter Additional Health Concerns Infection Onset Date Last Indicated Resolved Time COVID Screen (preop/placement) 02/12/2020 02/12/2020 02/13/2020 1:58 PM EST COVID Screen (preop/placement) 07/16/2023 07/16/2023 07/16/2023 8:55 PM EDT documented as of this encounter Care Teams Vamper Relationship Specialty Start Date End Date Eugenio Bolton MD PCP - General Family Medicine 06/05/16 10/26/16 documented as of this encounter
--- OUTSIDE RECORDS SUMMARY | 2016-08-07 13:15 | XMS_ITS | Encounter Summary ---
Author Organization [facility] Address [address] [place] [address] Care Team Providers Care Sheet Heater Helper Name Role Phone Eugenio Bolton MD Primary Care Provider + Reason for Referral * Hospital - Outpatient (Routine) - Closed Specialty Diagnoses / Procedures Referred By Delores t Referred To Contact Sleep Medicine Diagnoses Snoring Obstructive sleep apnea, adult Procedures Home Sleep Study Jim Coker MD [address] [place] [address] Phone: tel: fax: Jim Coker MD [address] [place] [address] Phone: tel: fax: Referral ID Status Reason Start Date Expiration Date Visits Re quested Visits Authorized [id number] Closed 08/04/2016 08/04/2017 1 1 Reason for Visit * Hospital - Outpatient (Routine) - Closed Specialty Diagnoses / Procedures Referred By Contac t Referred To Contact Sleep Medicine Diagnoses Snoring Obstructive sleep apnea, adult Procedures Home Sleep Study Jim Coker MD [address] [place] [address] Phone: tel: fax: Jim Coker MD [address] [place] [address] Phone: tel: fax: Referral ID Status Reason Start Date Expiration Date Visits Re quested Visits Authorized [id number] Closed 08/04/2016 08/04/2017 1 1 Encounter Details Date Type Department Care Team (Latest Contact Info) Description 08/07/2016 2:15 PM EDT Hospital Encounter [facility] [address] [facility] [address] [place] [address] Jim Coker MD [address] [facility] [address] [place] [address] Snoring; Obstructive sleep apnea, adult Social History Tobacco Use Types Packs/Day Years [...] on file documented as of this encounter Last Filed Vital Signs Vital Sign Reading Time Taken Comments Blood Pressure 147/79 08/07/2016 2:54 PM EDT Pulse 69 08/07/2016 2:54 PM EDT Temperature - - Respiratory Rate - - Oxygen Saturation 98% 08/07/2016 2:54 PM EDT Inhaled Oxygen Concentration - - Weight 95.5 kg (210 lb 9.6 oz) 08/07/2016 2:54 P M EDT Height 165.1 cm (5' 5 ) 08/07/2016 2:54 PM EDT Body Mass Index 35.05 08/07/2016 2:54 PM EDT documented in this encounter Functional Status documented as of this encounter Plan of Treatment Not on file documented as of this encounter Procedures Procedure Name Priority Date/Time Associated Diagnosis Comments HST Routine 08/09/2016 5:25 AM EDT Snoring Obstructive sleep apnea, adult documented in this encounter Results * HST (08/09/2016 5:25 AM EDT) Narrative Jim Coker MD - 08/27/2016 4:43 PM EDT Home sleep test with Uzma PDX device report date of study: 08/08/2016 Patient: Ritu Triplett date of : 1975 Referring: Marie Cunningham APRN primary care physician is Dr. Eugenio Bolton Clinical information: The patient is 41-year-old female history of snoring and nonrestorative sleep. She complains of feeling tired all the time. She had history of chest tightness and tachycardia. She has history of hypertension Strum scores 19/24 height 65 inches weight 208 pounds body mass index 34 she had nasal airway narrowing and Mallampati class III anatomy. Lungs were clear. Cardiac exam revealed normal S1 and S2. Extremities showed no edema. Methods: Patient had a home sleep test with an Uzma PDX device that measured airflow at the nose and mouth. It measured thoracic and abdominal respiratory efforts. It measured oxygen saturation and pulse rate and judged body position. Snoring was judged by transducer vibration. It was scored using standard techniques. Findings: The patient had a monitoring time of 381 minutes. She had 58 apneas and 71 hypopneas for a total of 129 events. This gave her an index of 20.3. This is consistent with moderate obstructive sleep apnea. She was supine for 258 minutes with an index of 27.2. She was on her right side 122.9 minutes with an index of only 5.9. This shows significant positional effect. She had oxygen desaturation to 72% and spent 2.8% of her time in bed or 10.8 minutes in desaturated state. Mean heart rate was 68.2. She did have snoring noted particularly early in evening. Assessment axis A: #1 moderate obstructive sleep apnea #2 significant positional effect #3 significant nocturnal hypoxemia [place] B: Home sleep test with Uzma PDX device [place] C: #1 obesity #2 hypertension #3 hyperlipidemia Recommendations #1 would consider trial of CPAP such as AutoSet with an 8 cm minimum an 18 cm maximum #2 would encourage weight loss #3 would encourage lateral position sleep #4 could consider oral appliance in combination with weight loss and lateral position sleep #5 would encourage patient to avoid alcohol and sedatives close to bedtime #6 would consider surgical therapy if CPAP or oral appliance is not tolerated #7 if CPAP is tolerated would consider overnight oximetry to be certain we are correcting nocturnal hypoxemia. Follow-up: She is to follow-up in sleep clinic and she is to follow-up with Ms. Cunningham and Dr. Hoang Coker MD [facility] Sleep Medicine Pulmonary and Critical Care Medicine Jim Coker MD SLEEP CENTER ORDERABLES Final Re sult documented in this encounter Visit Diagnoses Diagnosis Snoring Other dyspnea and respiratory abnormality Obstructive sleep apnea, adult documented in this encounter Additional Health Concerns Infection Onset Date Last Indicated Resolved Time COVID Screen (preop/placement) 02/12/2020 02/12/2020 02/13/2020 1:58 PM EST COVID Screen (preop/placement) 07/16/2023 07/16/2023 07/16/2023 8:55 PM EDT documented as of this encounter Care Teams Sheet Heater Helper Relationship Specialty Start Date End Date Eugenio Bolton MD PCP - General Family Medicine 06/05/16 10/26/16 documented as of this encounter
--- OUTSIDE RECORDS SUMMARY | 2025-02-23 07:36 | XMS_ITS | Continuity of Care Document ---
Author Organization [facility], DERMATOLOGY SB Address [address] [place] [id number] Assessment No assessment recorded. Plan of Treatment Reminders Order Date Submit Date Provider Last Modified By Organization Details Last Modified Time Details Appointments DERM VISIT 2025 03:40P M DANIEL JOSEPH MEDICAL SOCIOLOGIST Not available Not available Not available Lab surgical pathology study 2024 025 [facility], [address] [place] [address], [phone], 01/14/2025 16:41:18 Referral None recorded. Procedures None recorded. Surgeries None recorded. Imaging None recorded. Medication Orders ketoconaz ole 2 % topical cream 2024 025 [facility], [address], [address], 01/10/2025 20:10:16 Patient TargetsNo targets recorded. Patient InstructionsNo instructions recorded. Reason for Referral None Reported. Results Created Date Observation Date Name Description Value Unit Range Abnormal Flag Note LastModifiedBy Organization Detail LastModifiedTime 01/11/2001/10/2025 SURGI KRISS surgical SEE BELOW normal Surgi kriss Patho logy Repor t NAME: TONY TRIPLETT PATH: [id number] DATE of : 06/03 4 Copy to: Diagn osis: A) Left media l clavi lino: Infla med and irrit ated sebor rheic kerat osis. B) Left media l mid chest : Liche noid kerat osis. SOURC E OF SPECI MEN: SKIN BIOPS Y, LEFT MEDIA L CLAVI LINO SKIN BIOPS Y, LEFT MEDIA L MID CHEST CLINI KRISS INFOR MATIO N: D48.5 A) ISK vs SCC B) R/O BCC Gross Descr iptio n: A) Simba nt's name and date of verif ied. Recei roxi in forma mitch label ed with the rajeeve nt's name and desig nated left media l clavi lino is a shave biops y of skin (0.9 x 0.8 x 0.1 cm). The epide rmal surfa ce is villa-w massiel and brown -red, varie gated , and focal ly rough ened. The sheeba n is inked blue. The speci men is trise cted and entir delgado submi tted in one casse tte label ed A1. B) Simba nt's name and date of verif ied. Recei roxi in forma mitch label ed with the patie nt's name and desig nated left media l mid chest is a shave biops y of skin (0.8 x 0.6 x less than 0.1 cm). The epide rmal surfa ce is remar kable for a 0.5 x 0.3 x 0.1 cm sligh tly flesh y pale- villa nodul e. The sheeba n is inked blue. The speci men is trise cted and entir delgado submi tted in one casse tte label ed B1. SB 01/11 01:47 PM Micro scopi c Descr iptio n: A micro scopi c exami natio n has been perfo rmed and the resul t(s) are as noted above . BINDU ROUSE MD Chen d Out Date: 01/14 16:40 Page 1 of 1 Not Available [facility] [address] [place], [address], 01/14/2025 16:41:17 Result Notes None recorded. Procedures Surgical History Date Name Laterality Status Provider Name and Address Organization Details Recorded Time Biopsy Skin Lesion; Tangential completed [facility] 01/10/2025 13:37:19 Imaging Results None recorded. Procedure Notes None recorded. Medical Equipment None Reported. Allergies Allergen ID Allergen Name Allergen Category Reaction Reaction Severity Criticality Documentation Date Start Date Code Code System Note Provider Name and Address Organization Details Recorded Time 856126 cefazolin sodium medicatio n Not available Not available Not available 03/06/20162013 1 RxNorm Comme nt: Creat ed By: Cantoncr aft Mycha l;Cre ated Date: 014 3:32: 08 PM; Not Available [facility] 6 10:26:03 Medications Name Sig Start Date Stop Date Status Note LastModified by Organization Details LastModified Time ketoconazo le 2 % topical cream APPLY TO THE AFFECTED AREA(S) OF SCALING ON FACE BY TOPICAL ROUTE ONCE DAILY NEEDED FOR FLARING 2024 active Not Available Not Available Not Avai lable citalopram active Medicatio n Descripti on: citalopra m; Route:ora l; refills:0 Not Available Not Available Not Available omeprazole active Medicatio n Descripti on: omeprazol e; refills:0 Not Available Not Available Not Available Zyrtec active Medicatio n Descripti on: cetirizin e; Route:ora l; refills:0 Not Available Not Available Not Available Vitals None Recorded Social History None recorded. Functional Status None recorded. Mental Status None recorded. Family History Nothing Reported. Medical History No medical history recorded. Gynecological HistoryNo gynecological history recorded. Obstetrics History GPAL:G 0 P 0 0 0 0 Immunizations Vaccine Type Date Status Note Provider Nam e and Address Organization Details Recorded Time Hep B, adult 7 completed Not Available [facility] 01/10/2025 13:23:46 Hep B, adult 8 completed Not Available [facility] 01/10/2025 13:23:46 Hep B, adult 8 completed Not Available [facility] 01/10/2025 13:23:46 Influenza, split virus, quadrivalent, preservative 9 completed Not Available [facility] 01/10/2025 13:23:46 Influenza, split virus, quadrivalent, PF 0 completed Not Available [facility] 01/10/2025 13:23:46 COVID-19, mRNA, LNP-S, PF, 100 mcg/0.5mL dose or 50 mcg/0.25mL dose 1 completed Not Available [facility] 01/10/2025 13:23:46 COVID-19, mRNA, LNP-S, PF, 100 mcg/0.5mL dose or 50 mcg/0.25mL dose 1 completed Not Available [facility] 01/10/2025 13:23:46 Influenza, split virus, quadrivalent, PF 1 completed Not Available [facility] 01/10/2025 13:23:46 Tdap 2 completed Not Available [facility] 01/10/2025 13:23:46 Td (adult) 3 completed Not Available [facility] 01/10/2025 13:23:46 Hep A, adult 4 completed Not Available [facility] 01/10/2025 13:23:46 Past Encounters Encounter ID Performer Location Encounter Start Date Encounter Closed Date Diagnosis/Indication Diagnosis SNOMED-CT Code Diagnosis ICD10 Code Diagnosis IMO Codes Diagnosis Note [id number] SABA FIGUEROA, MEDICAL SOCIOLOGIST [facility] [address] [place] [address] 01/10/2025 13:23:20 01/10/2025 14:00:15 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 Regular self-skin exams recommende d. Pt encouraged to RTC with any new/changi ng lesions. Raised ryu orrheic keratosis [id number] 38385 L82.6 [id number] Benign appearance ; reassuranc e and education provided Senile angioma 1782515 I 78.1 [id number] Benign reassuranc e Multiple b enign melanocytic nevi 195423607 D22.9 [id number] Benign reassuranc eIf any lesions change, or if any other new or symptomati c lesions occur, patient understand s to return to the clinic for further evaluation Discussed sun precaution s; recommende d broad spectrum SPF 30+ sunscreen use daily History of malignant basal cell neoplasm of skin 104673218 Z85.828 [id number] well healed scar on right lateral neckremove d by Dr. Wei with [facility] [employer] [facility] 5 years agoNo sign of recurrence recommend annual fsepatient signed consent for records request Family his tory of malignant melanoma 997680937 Z80.8 [id number] Patients father and grandfathe r both had MMRecommen d annual fse Neoplasm o f uncertain behavior of skin 92748094 D48.5 85923 1) Isk vs SCC - L medial clavicle2) r/o bcc - L medial mid chest shave bx taken todaysee procedure noteconsen t was signedphot o takenwound care instructio ns were givenf/up per path Seborrheic dermatitis 50 575477 L21.9 15865 facemild- not controlled - using OTC moisturize rsdiscusse d diagnosis, nature of condition, and need for periodic topical treatmentR isks/benef its and potential side effects reviewed for Ketoconazo le creamPatie nt verbalized understand ing and would like to trial medKetocon azole 2% cream - apply to affected areas of face QD as needed for flaresadvi sed patient to use gentle , fragrance free soaps and lotions on face can treat further if persisting - pt will call as needed Dermatofibroma 415672652 D23.9 52179 Benign appearance ; reassuranc e and education provided Health Concerns Section Related Observation LastModified by Organization Detai ls LastModified Time None Recorded Concern Status LastModified by Organization Details LastModified Time None Recorded Payers Encounter Date Sequence Insurance Name Policy Number Policy Elizondo Covered Member ID Elizondo Member ID Guarantor Name 01/10/2025 1 [place] [id number] Ritu Triplett [id number] Ritu Triplett Notes Date Note Type Note Provider Name and Address Organization Details Recorded Time 01/10/2025 text/html ROS as noted in the HPI New patient- Patient presents to the clinic today for a lesion on her L collarbone and full skin check today Patient states she has had for while but has recently raised and wanted to get checked Patient has had BCC ON R NECK 5 years ago, dr wei family hx of MM Denies any other new, changing, or bleeding lesions, or other rashes, feels well, and has no family history of melanoma. SABA FIGUEROA, MEDICAL SOCIOLOGIST [address] [place], [address], [facility] 01/10/2025 20:09:38 OBGyn Episode No OBEpisode recorded.
--- OUTSIDE RECORDS SUMMARY | 2025-02-23 07:36 | XMS_ITS | Data Portability ---
Author Organization [facility] Address [address] [place] [address] Assessment No assessment recorded. Plan of Treatment Reminders Order Date Submit Date Provider Last Modified By Organization Details Last Modified Time Details Appointments DERM VISIT 2025 03:40P M DANIEL JOSEPH SEAL EXTRUSION OPERATOR Not available Not available Not available Lab surgical pathology study 2024 025 [facility], [address] [place] [address], [phone], 01/14/2025 16:41:18 Referral None recorded. Procedures None recorded. Surgeries None recorded. Imaging None recorded. Medication Orders ketoconaz ole 2 % topical cream 2024 025 [facility], [address], [address], 01/10/2025 20:10:16 Patient TargetsNo targets recorded. Patient [...] R/O BCC Gross Descr iptio n: A) Bella castro's name and date of verif ied. Recei roxi in forma mitch label ed with the bella nt's name and desig nated left media [...] one casse tte label ed A1. B) Bella nt's name and date of verif ied. Recei roxi in forma mitch label ed with the bella nt's name and desig nated left media [...] 16:40 Page 1 of 1 Not Available [facility] [place], [address], 01/14/2025 16:41:17 Result Notes None recorded. Procedures Surgical History Date Name Laterality Status Provider Name and Address Organization Details Recorded Time Biopsy Skin Lesion; Tangential completed [facility] 01/10/2025 13:37:19 Imaging Results None recorded. Procedure Notes None recorded. Medical Equipment None Reported. Allergies Allergen ID Allergen Name Allergen Category Reaction Reaction Severity Criticality Documentation Date Start Date Code Code System Note Provider Name and Address Organization Details Recorded Time 102395 cefazolin sodium medicatio n Not available Not available Not available 03/06/2016201317 1 RxNorm Comme nt: Creat ed By: Ashcr aft Mycha l;Cre ated Date: 014 3:32: 08 PM; Not Available [facility] 6 10:26:03 Medications Name Sig Start [...] Hep B, adult 7 completed Not Available [facility] 01/10/2025 13:23:46 Hep B, adult 8 completed Not Available [facility] 01/10/2025 13:23:46 Hep B, adult 8 completed [facility] 01/10/2025 13:23:46 Influenza, split virus, quadrivalent, preservative 9 completed Not Available [facility] 01/10/2025 13:23:46 Influenza, split virus, quadrivalent, PF 0 completed [facility] Available [facility] 01/10/2025 13:23:46 COVID-19, mRNA, LNP-S, PF, 100 mcg/0.5mL dose or 50 mcg/0.25mL dose 1 completed Not Available [facility] 01/10/2025 13:23:46 COVID-19, mRNA, LNP-S, PF, 100 mcg/0.5mL dose or 50 mcg/0.25mL dose 1 completed Not Available [facility] 01/10/2025 13:23:46 Influenza, split virus, quadrivalent, PF 1 completed Not Available [facility] 01/10/2025 13:23:46 Tdap 2 completed Not Available [facility] 01/10/2025 13:23:46 Td (adult) 3 completed Not Available [facility] 01/10/2025 13:23:46 Hep A, adult 4 completed Not Available [facility] 01/10/2025 13:23:46 Past Encounters Encounter ID Performer Location Encounter Start Date Encounter Closed Date Diagnosis/Indication Diagnosis SNOMED-CT Code Diagnosis ICD10 Code Diagnosis IMO Codes Diagnosis Note [id number] SABA FIGUEROA, SEAL EXTRUSION OPERATOR [facility]ERMATOLO [facility] [address] [place] [address] 01/10/2025 13:23:20 01/10/2025 14:00:15 Solar lentiginosis 974408943 L81.4 [id number] Benign reassuranc eCounseled on sun protective clothing and daily UV protection with otc broad-spec trum SPF 30+ on exposed areas. Regular self-skin exams recommende d. Pt encouraged to RTC with any new/changi ng lesions. Raised ruy orrheic keratosis 6343700448 02241 L82.1 [id number] Benign appearance ; reassuranc e and education provided Senile angioma 3659011 I 78.1 [id number] Benign reassuranc e Multiple b enign melanocytic nevi 133539229 D22.9 [id number] Benign reassuranc eIf any lesions change, or if any other new or symptomati c lesions occur, patient understand s to return to the clinic for further evaluation Discussed sun precaution s; recommende d broad spectrum SPF 30+ sunscreen use daily History of malignant basal cell neoplasm of skin 507818020 Z85.828 [id number] well healed scar on right lateral neckremove d by Dr. Wei with [employer] [facility] 5 years agoNo sign of recurrence recommend annual fsepatient signed consent for records request Family his tory of malignant melanoma 300489544 Z80.8 [id number] Patients father and grandfathe r both had MMRecommen d annual fse Neoplasm o f uncertain behavior of skin 73227239 D48.5 73168 1) Isk vs SCC - L medial clavicle2) r/o bcc - L medial mid chest shave bx taken todaysee procedure noteconsen t was signedphot o takenwound care instructio ns were givenf/up per path Seborrheic dermatitis 50 648406 L21.9 71494 facemild- not controlled - using OTC moisturize [...] - pt will call as needed Dermatofibroma 843173194 D23.9 61588 Benign appearance ; reassuranc e and education provided Health Concerns Section Related Observation LastModified by Organization Detai ls LastModified Time None Recorded Concern Status LastModified by Organization Details LastModified Time None Recorded Advance Directives Directive None Recorded Payers Insurance Date Sequence Insurance Name Policy Number Policy Elizondo Covered Member ID Elizondo Member ID Guarantor Name 01/16/2025 1 [place] [id number] Ritu Uziel [id number] Ritu Triplett Notes Date Note Type [...] ON R NECK 5 years ago, dr ewi family hx of MM Denies any other new, changing, or bleeding lesions, or other rashes, feels well, and has no family history of melanoma. SABA FIGUEROA, SEAL EXTRUSION OPERATOR [address] [place], [address], [facility] 01/10/2025 20:09:38 OBGyn Episode No OBEpisode recorded.
--- OUTSIDE RECORDS SUMMARY | 2025-02-23 07:36 | XMS_ITS | Clinical Summary ---
Author Organization [facility] Address [address] [place] [address] Care Team Providers Care Gear Cutter Name Role Phone Gurinder Rodriguez MD Primary Care Provider [phone] Social History Tobacco Use Types Packs/Day Years [...] 2019 Sigmoidoscopy 2019 [facility]-Colorectal Cancer Screening 2019 [facility]-Pneumococcal Vaccine: 50 + Years (1 of 1 - PCV) 2024 [facility]-Zoster Vaccines (1 of 2) 2024 [facility]-STPTS-40 Vaccine (3 - 2024- season) 2024 05/31/2020, 05/01/2020 [facility]-Influenza Vaccine (#1) 12/11/202402/24, 01/31/2020, 02/13/2019 [facility]-DTaP,Tdap,and [...] [place] [id number] ANTHEM Care Teams Gear Cutter Relationship Specialty Start Date End Date Gurinder Rodriguez MD [phone] (work) PCP - General 08/31/22
--- OUTSIDE RECORDS SUMMARY | 2025-02-23 07:36 | XMS_ITS | Clinical Summary ---
Author Organization [facility] Address [address] [place] [address] Care Team Providers Care Farm Adviser Name Role Phone Dhruv Alberta DONITA Primary Care Provider [phone] Allergies Active Allergy Reactions Criticality Noted Date [...] Pelvic an d Breast Exam 08/12/2023 08/10/2022 Pneumococcal Vaccine 50+ (1 of 1 - PCV) 2024 ZOSTER VACCINE (1 of 2) 2024 INFLUENZA VACCINE 11/10/2024 02/01/2023, , 01/31/2020, Additional history exists MAMMOGRAM [...] Most Recently Relevant to Health Maintenance Insurance [employer] Advance Directives * CPR (Attempt to Resuscitate) (Latest Code Status on File) Date Activated Date Inactivated Comments 01/19/2018 10:22 AM 01/19/2018 1:29 PM Question Answer Comments Code Status (Patient has no pulse and is not breathing): CPR (Attempt to Resuscitate) Medical Interventions (Patie nt has pulse or is breathing): Full Level Of Support Discussed With: Patient Care Teams Farm Adviser Relationship Specialty Start Date End Date Alberta Bartlett APRN [address] [place] [address] PCP - General Internal Medicine 02/28/24
[2025-02-23 08:11] LABS: Hematocrit 41.0 % (37.0-47.0); Hemoglobin 13.9 g/dL (12.2-16.2); Immature Granulocytes % 0.2 %; Mean Corpuscular HGB Conc 33.9 g/dL (31.8-35.4); Mean Corpuscular Hemoglobin 30.3 pg (27.0-31.2); Mean Corpuscular Volume 89.3 fl (81-99); Nucleated Red Blood Cells % 0 %; Platelet Count 232 K/mm3 (142-424); Red Blood Count 4.59 M/mm3 (4.20-5.40); Red Cell Distribution Width-SD 40.8 fL; White Blood Count 4.7 K/mm3 (4.8-10.8)
[2025-02-23 08:37] LABS: Alanine Aminotransferase 13 U/L (12-78); Albumin Level 4.3 g/dl (3.5-5.0); Albumin/Globulin Ratio 1.4 (1.1-1.8); Alkaline Phosphatase 75 U/L (38-126); Anion Gap 7.9 mEq/L (5-15); Aspartate Amino Transferase 24 U/L (14-36); Bilirubin,Total 0.6 mg/dl (0.2-1.3); Blood Urea Nitrogen 13 mg/dl (7-17); Calcium 9.5 mg/dl (8.4-10.2); Carbon Dioxide 31 mmol/L (22.0-30.0); Chloride 101 mmol/L (98-107); Cholesterol 178 mg/dl (140-200); Creatinine,Serum 0.80 mg/dl (0.52-1.04); Estimated Glomerular Filt Rate 76 ml/min (>60); GFR (African American) 92 ML/MIN (>60); Globulin 3.0 g/dL (1.3-3.2); Glucose 76 mg/dl (74-100); HDL Cholesterol 61 mg/dl (40-60); Potassium 3.9 mmoL/L (3.5-5.1); Sodium 136 mmol/L (136-145); Total Protein,Serum 7.3 g/dl (6.3-8.2); Triglycerides 97 mg/dl (30-150)
[2025-02-23 14:36] LABS: Thyroid Stimulating Hormone 2.07 uIU/mL (0.465-4.68)
== END 2025-02-23 23:59 | disposition home or self-care (01) ==
PROVIDERS: Nurse Practitioner Family; PCP Internal Medicine; Visit Provider Obstetrics & Gynecology
DX: E78.5 Hyperlipidemia, unspecified (principal); R23.2 Flushing; E66.811 Obesity, class 1; N91.2 Amenorrhea, unspecified
CPT/HCPCS: 36415; 80053; 80061; 84443; 85025